=== PATIENT | male | born 1945 | race African-American/Black ===

== ENCOUNTER → 2019-12-24 11:59 | Outpatient (CLI) | payer MEDICARE, SELFPAY ==
--- NOTE | ~2019-12-24 | XR_ITS ---
EXAMINATION: XR shoulder RT min 2V DATE: 12/24/2019 12:24 INDICATION: Right shoulder pain TECHNIQUE: AP internally and externally rotated, AP oblique externally rotated and axillary views of the right shoulder were obtained. COMPARISON: None FINDINGS: Normal alignment. No fracture. Glenohumeral joint is normal. Acromioclavicular joint is normal. Soft tissues are unremarkable. Visualized portions of the right lung are clear. IMPRESSION: Negative right shoulder radiographs. Reviewed, dictated and finalized at location A. SPERSON
--- NOTE | ~2019-12-24 | XR_ITS ---
EXAMINATION: XR hip BI wo pelvis INDICATION: Bilateral hip pain TECHNIQUE: Two views of each hip are obtained. COMPARISON: 11/01/2015 FINDINGS: There is mild bilateral hip osteoarthritis. Bone alignment is normal. There is no fracture. Moderate to severe lumbar spondylosis is noted. There is calcified atherosclerosis. IMPRESSION: 1. Mild hip osteoarthritis without acute findings. Reviewed, dictated and finalized at location A. AL ARCHITECT
== END ==
PROVIDERS: PCP Family Medicine; Visit Provider Family Medicine
DX: M16.0 Bilateral primary osteoarthritis of hip (principal); M25.511 Pain in right shoulder
CPT/HCPCS: 73030; 73521

== ENCOUNTER 2020-08-10 21:56 | Observation (INO) | payer MEDICARE, SELFPAY ==
--- NOTE | ~2020-08-10 | NM_ITS ---
EXAMINATION: NM lucina stress w perfusion DATE: 08/11/2020 15:00 INDICATION: Chest pain TECHNIQUE: Rest images were obtained following intravenous administration of 9.3 mCi Tc99m tetrofosmi n (Myoview). The patient was infused intravenously with Lexiscan (Regadenoson). Then, 30 mCi Tc99m te trofosmin (Myoview) was administered intravenously, and stress images were obtained in supine positio n. Additional prone post stress images were obtained. Data was reconstructed into short axis and hori zontal and vertical long axis SPECT images. Gated SPECT images were also obtained. COMPARISON: None. FINDINGS: There is essentially decreased activity along the inferior wall of the heart on the supine imaging which is more prominent on the rest than the stress images and which normalizes on prone imag ing consistent with likely diaphragmatic attenuation artifact. There is no definite reversible or fix ed perfusion abnormality to suggest ischemia or infarction. There is normal left ventricular chamber size, wall motion and ejection fraction. Left ventricular ejection fraction measures 61%. IMPRESSION: 1. Normal myocardial perfusion at rest and during stress. 2. Left ventricular ejection fraction measuring 61%. Reviewed, dictated and finalized at location A.
--- NOTE | ~2020-08-10 | XR_ITS ---
EXAMINATION: XR chest 1V portable EXAM DATE: 08/10/2020 23:00 INDICATION: Left-sided chest pain. History hypertension. TECHNIQUE: Portable AP frontal chest x-ray was obtained. Comparison is made to prior examination from 11/16/2018. FINDINGS: Subsegmental left basilar opacity probably atelectasis, clinical correlation. The lungs are otherwise clear. There are no pleural effusions. The cardiomediastinal silhouette is within normal limits. There is no pneumothorax suspected. The bones and soft tissues are unremarkable. IMPRESSION: Small amount of left basilar opacity probably atelectasis but please clinically correlate . Reviewed, dictated and finalized at location A. IMPRESSION: Small amount of left basilar opacity probably atelectasis but pleas e clinically correlate.
[2020-08-10 22:06] VITALS: BP 161/90; PULSE 76; RESP 20; TEMP 37.3; O2SAT 98
--- NOTE | 2020-08-10 22:14 | ECG_ITS ---
Measurements Intervals [place] Rate: 75 P: 60 AR: 277 QRS: -8 QRSD: 97 T: 55 QT: 356 QTc: 398 Interpretive Statements SINUS RHYTHM WITH FIRST DEGREE AV BLOCK BASELINE ARTIFACT- I, III, AVL ABNORMAL ECG Electronically Signed On 08-11-2020 6:42:11 CDT by Emmett Alcantar D.O.
[2020-08-10 22:32] LABS: Basophils Percent Auto 0.7 % (0.2-1.2); Eosinophils Absolute Auto 0.1 K/mm3 (0-0.3); Eosinophils Percent Auto 1.7 % (0-4.4); Hematocrit 39.8 % (42.0-52.0); Hemoglobin 13.8 g/dL (14.0-18.0); Immature Granulocyte Absolute 0.01 K/mm3 (0.00-0.031); Immature Granulocyte Percent A 0.2 % (0-0.5); Lymphocytes Absolute Auto 0.69 K/mm3 (0.9-3.2); Lymphocytes Percent Auto 17.1 % (18.3-44.2); Mean Corpuscular HGB Conc 34.7 g/dl (32-36); Mean Corpuscular Hemoglobin 32.5 pg (26-34); Mean Corpuscular Volume 93.9 fl (80-100); Mean Platelet Volume 8.8 fl (7.4-10.4); Monocytes Absolute Auto 0.4 K/mm3 (0.1-0.6); Monocytes Percent Auto 10.6 % (2.6-8.5); Neutrophils Absolute Auto 2.8 K/mm3 (1.3-6.7); Neutrophils Percent Auto 69.7 % (45.5-73.1); Platelet Count Result 163 k/mm3 (150-375); Red Blood Count 4.24 M/mm3 (4.6-6.20); Red Cell Distribution Width 13.1 % (11.5-14.5)
[2020-08-10 22:42] LABS: Partial Thromboplastin Time 26.3 SECONDS (22.3-36.8)
[2020-08-10 22:44] LABS: Alanine Aminotransferase 24 U/L (4-50); Albumin Level 3.9 g/dL (3.5-5.1); Alkaline Phosphatase 55 U/L (38-126); Anion Gap 7 mmol/L (8-16); Aspartate Amino Transferase 27 U/L (17-59); Bilirubin,Total 0.7 mg/dL (0.2-1.3); Blood Urea Nitrogen 24 mg/dL (9-20); Calcium 9.3 mg/dL (8.4-10.2); Carbon Dioxide 28 mmol/L (22-30); Chloride 106 mmol/L (98-107); Estimated CRCL calculation 42 ml/min; Estimated Glomerular Filt Rate 51; Glucose 130 mg/dL (75-110); Sodium 141 mmol/L (137-145)
[2020-08-10 22:56] LABS: NT Pro B Type Natriuretic Pept 42 PG/ML (5-100); Troponin I < 0.012 ng/mL (0.000-0.034)
--- NOTE | 2020-08-10 23:29 | ED.CHESTPAIN ---
HPI - Chest Pain General Chief Complaint: Chest Pain Stated Complaint: chest pain Time Seen by Provider: 08/10/20 22:13 Source: family Mode of arrival: ambulatory Limitations: no limitations History of Present Illness HPI narrative: 75-year-old with a history of hypertension, status post prostate CA here with complaints of left-sided chest pain for last 4 hours. Patient states that pain is mostly in the left precordial area. Nonradiating. He denies any shortness of breath, nausea or diaphoresis. Patient states that he was sitting on the couch watching TV . No history of fever or chills. No COVID exposure. Patient states that he had stress test done several years ago. complaint: chest pain Onset (ago): hour(s) (2) Timing of current episode: constant Onset: during rest Pain location: left chest Pain radiation: none Quality: heaviness Relieving factors: nothing Exacerbating factors: nothing Risk Factors Coronary artery disease risk factors: hyperlipidemia and hypertension Thoracic aortic dissection risk factors: none Related Data Home Medications Medication Instructions Recorded Confirmed cholecalciferol (vitamin D3) 125 5,000 unit PO DAILY 12/24/19 mcg (5,000 unit) capsule simvastatin 20 mg tablet 20 mg PO DAILY 12/24/19 Allergies Allergy/AdvReac Type Severity Reaction Status Date / Time atorvastatin Allergy Unknown Unknown Verified 08/06/20 11:21 Sulfa (Sulfonamide Allergy Unknown Rash Verified 08/06/20 11:21 Antibiotics) sulfanilamide Allergy Unknown Rash Verified 08/06/20 11:21 Review of Systems Review of Systems: All systems reviewed & are unremarkable except as noted in HPI and below Constitutional: Constitutional: Reports no additional constitutional complaints Eyes: Eyes: Reports no additional eye complaints ENT: Reports system reviewed and no additional complaints, except as documented Cardiovascular: Cardiovascular: Reports as per HPI and Reports no additional cardiovascular complaints Respiratory: Respiratory: Reports as per HPI Gastrointestinal: Gastrointestinal: Reports no additional gastrointestinal complaints Musculoskeletal: Musculoskeletal: Reports no additional musculoskeletal complaints [facility] Family History Family History Father Hypertension Family history of diabetes mellitus in first degree relative Sibling Patient's sister is in good health Social History Social History Smoking packs per day: 3 Smoking cigarettes per day: 60.0 Years smoked: 21 Smoking pack-years: 63.00 Smoking status: Former smoker Tobacco type: cigarettes Second hand tobacco smoke exposure: No Smoking end date: 11/14/84 Alcohol intake: never Substance use: never Substance use type: does not use Gender identity (if verbalized by the patient): Male Exam Narrative: Exam Narrative: GENERAL: Well-appearing, well-nourished, and in no acute distress. HEAD: Normocephalic, atraumatic. EYES: PERRLA and EOMI. ENT: Nares clear, . Mucous membranes moist. NECK: Supple. CHEST: Clear to auscultation. No respiratory distress. HEART: Regular rate and rhythm. No murmur heard. Normal peripheral pulses. ABDOMEN: Soft, nontender, nondistended, normal active bowel sounds. EXTREMITIES: Normal range of motion. No edema. SKIN: Warm, dry, no rash. NEURO: No focal deficits. Alert and oriented x3. PSYCH: Normal mood and affect. Course Course Emergency Course: With a given history of hypertension, hyperlipidemia will do cardiac work-up. His EKG at this time is unremarkable except for first-degree AV block. Also give him nitro and aspirin as he stated his pain is 4 out of 10. Vital Signs Vital signs: Vital Signs Temperature 37.3 C 08/10/20 22:06 Pulse Rate 76 08/10/20 22:06 Respiratory Rate 08/10/20 22:06 Blood Pressure 161/90 H 08/10/20 22:06 Pulse Oximetry 98
[2020-08-10 23:30] VITALS: BP 141/78; PULSE 77; RESP 21; O2SAT 95
[2020-08-10] MEDS: NITROGLYCERIN SL 0.4 MG TABLET SUBLINGUAL (23:32)
[2020-08-10] MEDS: ASPIRIN 325 MG TABLET PO (23:35)
[2020-08-11] VITALS (16 sets, daily range): BP systolic 112–140; BP diastolic 67–91; PULSE 53–77; RESP 12–23; TEMP 35.9–36.4; O2SAT 94–100; BMI 26.9
--- NOTE | 2020-08-11 00:41 | PC.NURSE ---
2ND 0.4 MG SL NTG TAB ADMINISTERED FOR 01/21 CP, 131/77 B/P TREVOR, 74 HR.
[2020-08-11 01:41] LABS: Troponin I < 0.012 ng/mL (0.000-0.034)
[2020-08-11] MEDS: NITROGLYCERIN OINTMENT 1 INCH DOSE TRANSDERM ×2 (02:01→06:03)
--- NOTE | 2020-08-11 02:11 | ADMGEN ---
This patient, Sudarshan Rice, was admitted to IMU Room 210-01. Patient/family oriented to hospital policies and general routines including ID bracelet, bed and alarms, visiting hours, pain management, procedures, bathroom and other care routines, personal items, smoking policy, room service/diet, and visiting hours. Valuables list has been completed. Information on how to activate the Rapid Response Team has been discussed. Patient/Family are encouraged to report perceived risks to care and to ask questions if they do not understand what they are told or what they should do.
[2020-08-11] MEDS: SODIUM CHLORIDE 0.9% IV 1,000 ML 100 ML IV CONT (06:08)
[2020-08-11 06:12] LABS: Basophils Percent Auto 0.5 % (0.2-1.2); Eosinophils Absolute Auto 0.1 K/mm3 (0-0.3); Eosinophils Percent Auto 2.9 % (0-4.4); Hematocrit 38.9 % (42.0-52.0); Hemoglobin 13.4 g/dL (14.0-18.0); Lymphocytes Absolute Auto 0.75 K/mm3 (0.9-3.2); Lymphocytes Percent Auto 19.8 % (18.3-44.2); Mean Corpuscular HGB Conc 34.4 g/dl (32-36); Mean Corpuscular Hemoglobin 32.2 pg (26-34); Mean Corpuscular Volume 93.5 fl (80-100); Mean Platelet Volume 8.5 fl (7.4-10.4); Monocytes Absolute Auto 0.4 K/mm3 (0.1-0.6); Monocytes Percent Auto 11.3 % (2.6-8.5); Neutrophils Absolute Auto 2.5 K/mm3 (1.3-6.7); Neutrophils Percent Auto 65.5 % (45.5-73.1); Platelet Count Result 162 k/mm3 (150-375); Red Blood Count 4.16 M/mm3 (4.6-6.20); Red Cell Distribution Width 12.9 % (11.5-14.5); White Blood Count 3.8 K/mm3 (4.5-10.0)
[2020-08-11 06:31] LABS: Anion Gap 5 mmol/L (8-16); Blood Urea Nitrogen 21 mg/dL (9-20); Calcium 9.3 mg/dL (8.4-10.2); Carbon Dioxide 29 mmol/L (22-30); Chloride 106 mmol/L (98-107); Estimated CRCL calculation 42 ml/min; Estimated Glomerular Filt Rate 51; Glucose 115 mg/dL (75-110); Potassium 4.4 mmol/L (3.4-5.0); Sodium 140 mmol/L (137-145)
[2020-08-11 06:37] LABS: Troponin I < 0.012 ng/mL (0.000-0.034)
[2020-08-11] MEDS: FAMOTIDINE 20 MG/2 ML VIAL IV PUSH (08:29)
[2020-08-11] MEDS: ASPIRIN 81 MG CHEWABLE TABLET PO (08:29)
--- NOTE | 2020-08-11 08:35 | EST_ITS ---
Patient Info Name: Sudarshan Rice Age: 75 years : 1945 Gender: Male Ht: 74 in Wt: 216 lbs BSA: 2.28 m2 HR: 78 bpm BP: 141 / 80 mmHg Heart Rhythm: Sinus Rhythm Technical Quality: Good Exam Date: 08/11/2020 1:26 PM Exam Location: [facility] Stress Patient Status: Inpatient Admit Date: 08/10/2020 Staff Ordering Physician: Shalom Cotter MD Attending Provider: Alexandr Almaguer MD Exercise Technologist: Bart Bess RDCS, RT Exam Type: CA stress lucina w NM Study Info Indications R07.9 - Chest pain, unspecified A nuclear stress test was performed. History/Risk Factors Chest pain. Summary 1. Sinus bradycardia. 2. First degree A-V Block. 3. No abnormal ST/T wave changes with exercise. 4. Clinically and electrocardiographically unremarkable Lexiscan stress test. 5. Myocardial perfusion imaging study to be reported by Radiology. Protocol: Lexiscan Stress ECG Details Stage: REST Duration (min): 1 min : 48 sec HR (bpm): 57 SBP (mmHg): 127 DBP (mmHg): 77 Stage: REST Duration (min): 4 min : 28 sec HR (bpm): 59 SBP (mmHg): 127 DBP (mmHg): 77 Stage: STAGE 1 Duration (min): 1 min : 0 sec HR (bpm): 62 SBP (mmHg): 141 DBP (mmHg): 80 Stage: RECOVERY Duration (min): 1 min : 0 sec HR (bpm): 75 SBP (mmHg): 141 DBP (mmHg): 80 Stage: RECOVERY Duration (min): 2 min : 0 sec HR (bpm): 74 SBP (mmHg): 141 DBP (mmHg): 80 Stage: RECOVERY Duration (min): 3 min : 0 sec HR (bpm): 73 SBP (mmHg): 132 DBP (mmHg): 79 Stage: RECOVERY Duration (min): 3 min : 40 sec HR (bpm): 72 SBP (mmHg): 132 DBP (mmHg): 79 Rest HR: 59 bpm Peak HR: 78 bpm Rest Sys BP: 127 mmHg Peak Sys BP: 141 mmHg Max Pred HR: 144 bpm % Max Pred HR: 54 % Target HR: 122 bpm Max RPP: 10,998 bpm*mmHg Total Time: 1 min : 0 sec Rest Haines BP: 77 mmHg Peak Haines BP: 80 mmHg Total Dose: 0.4 mg Resting ECG Sinus bradycardia. First degree A-V Block. Stress ECG No abnormal ST/T wave changes with exercise. Arrhythmias None. Report Signatures
--- NOTE | 2020-08-11 08:45 | PM.IMHP ---
H&P: HPI History of Present Illness Date/Time: 08/11/20 08:45 Chief complaint: unstable angina Narrative: date of visit 08/11 815. Sudarshan Rice is a 75 year old male with hyperlipidemia and hypertension status post radical prostatectomy prostate CA and stage III chronic renal failure who presented to the emergency room with complaints of left-sided dull pressure chest pain. He states the pain occurred while sitting watching TV sometime after eating. The pain is been fairly constant with no associated shortness breath nausea or diaphoresis. No recent changes in activity and no recent similar pain. The distant past, several years ago had a stress test for chest discomfort which was negative. No known family history and had not smoked since 1974 . treated for hypertension and hyperlipidemia. no significant GI symptoms of reflux or such on regular basis Review of Systems Review of Systems: Narrative: constitutional weight stable appetite good Eye no double vision scotoma mouth no pharyngitis laryngitis CV no palpitation GI no melena hematochezia diarrhea post surgery and radiation has had frequency and occasional mild incontinence integument no skin breakdown rashes muscle skeletal no particular joint discomfort neuropsych no seizures no syncope PMFSH Past Medical History Medical History (Updated 08/11/20 @ 08:58 by Shalom Cotter MD) Chronic renal failure, stage 3 (moderate) Hyperlipidemia Hypertension Prostate cancer Surgical History Surgical History (Updated 08/11/20 @ 08:58 by Shalom Cotter MD) H/O radical prostatectomy Family History Family History Father Hypertension Family history of diabetes mellitus in first degree relative Sibling Patient's sister is in good health Social History Social History (Updated 08/11/20 @ 08:59 by Shalom Cotter MD) Social History: retired [employer], no occupational exposure Smoking packs per day: 3 Smoking cigarettes per day: 60.0 Years smoked: 21 Smoking pack-years: 63.00 Smoking status: Former smoker Tobacco type: cigarettes Second hand tobacco smoke exposure: No Smoking end date: 11/14/84 Alcohol intake: former Substance use: never Substance use type: does not use Gender identity (if verbalized by the patient): Male Spiritual care concerns: No Meds Home Medications and Allergies Home Medications Medication Instructions Recorded Confirmed Type cholecalciferol (vitamin D3) 125 5,000 unit PO DAILY 12/24/19 08/11/20 History mcg (5,000 unit) capsule simvastatin 20 mg tablet 20 mg PO DAILY 12/24/19 08/11/20 History lisinopril 10 mg tablet 10 mg PO DAILY #90 tablet 01/01/20 08/11/20 Rx cnhitvrgpvor-iualvirn-mcvojd 1 tablet PO DAILY 08/10/20 08/11/20 History [Multivitamin 50 Plus] Allergies Allergy/AdvReac Type Severity Reaction Status Date / Time atorvastatin Allergy Unknown Unknown Verified 08/10/20 23:41 Sulfa (Sulfonamide Allergy Unknown Rash Verified 08/10/20 23:41 Antibiotics) sulfanilamide Allergy Unknown Rash Verified 08/10/20 23:41 Vital Signs Vital Signs - 24 hr 08/10/20 22:06 08/10/20 23:30 08/11/20 00:15 Temperature 37.3 C Pulse Rate 76 77 72 Respiratory Rate 20 21 H 21 H Blood Pressure 161/90 H 141/78 H 140/84 Pulse Oximetry 98 95 97 08/11/20 00:38 08/11/20 00:45 08/11/20 01:00 Temperature 36.4 C Pulse Rate 68 77 74 Respiratory Rate 17 23 H 18 Blood Pressure 131/77 129/73 129/71 Pulse Oximetry 94 99 98 08/11/20 02:00 08/11/20 02:20 08/11/20 04:00 Temperature 36.1 C L Pulse Rate 76 69 69 Respiratory Rate 18 Blood Pressure 112/69 Pulse Oximetry 100 08/11/20 04:23 08/11/20 06:00 08/11/20 08:00 Temperature 36.0 C L Pulse Rate 68 62 58 L Respiratory Rate 12 Blood Pressure 120/67 Pulse Oximetry 99 Exam Narrative: Exam Narrative: blood pressure 1
--- NOTE | 2020-08-11 10:39 | PM.CNCAR ---
Assessment and Plan Assessment and plan (1) Chest pain: Code(s): R07.9 - Chest pain, unspecified Status: Acute Assessment and Plan: Atypical, constant ruled out for myocardial infarction most likely musculoskeletal and/or GI related. However, given patient's multiple risk factors including age, HTN, dyslipidemia, remote tobacco use), underlying CAD cannot be excluded. PT agreeable to proceed with Lexiscan nuclear stress test to assess for myocardial ischemia. He states he is unable to exercise due to sciatica/back pain. If no significant reversible ischemia with preserved LV systolic function identified patient may be discharged home to follow with PCP. Further recommendations to follow. Discussed invasive versus noninvasive evaluation. All questions answered to the patient's satisfaction. Patient wishes to avoid invasive procedures if at all possible. he wishes to proceed with stress test. I explained his recommendation for coronary angiography if significant and/or high risk reversible ischemia identified but any decision in this regard must be made in context with his other medical conditions balancing risk versus benefit. further recommendations to follow after review ischemic evaluation. (2) Hypertension: Code(s): I10 - Essential (primary) hypertension Status: Acute Assessment and Plan: Controlled presently, but elevated initially. Continue current antihypertensive regimen. Lisinopril 10 mg daily. (3) CKD (chronic kidney disease), stage III: Code(s): N18.3 - Chronic kidney disease, stage 3 (moderate) Status: Acute Assessment and Plan: Stable, at baseline. (4) Dyslipidemia: Code(s): E78.5 - Hyperlipidemia, unspecified Status: Acute Assessment and Plan: Continue simvastatin 20 mg daily. History of Present Illness History of Present Illness Consult date/time: Date of service:08/11/20 10:39 Cardiology consultation at the request of Dr. Cotter of [facility] for our opinion regarding chest pain. Requesting physician: Shalom Cotter MD Consult reason: chest pain Reason For Visit: unstable angina Narrative: Patient is a very pleasant 75-year-old male with history of hypertension, dyslipidemia, history of radical prostatectomy secondary to prostate cancer, chronic kidney disease stage 3 who presented emergency prior with complaints of pressure-like chest pain in the left upper chest. Patient states this occurred at rest yesterday around 5:00 p.m. after eating while watching television. Patient denies radiation or associated shortness of breath and nausea. Symptoms have been constant although lessened in intensity since that time. He notes sitting up seems to make the pain a bit worse. He has never experienced symptoms similar to this he states. He has been having more issues with GERD but states this is different. He has ruled out for myocardial infarct with negative serial cardiac enzymes and no acute ischemic changes on EKG. He states he had a stress test several years ago which was unremarkable. He denies recent trauma, illnesses, fevers, chills or cough. He feels well otherwise and reiterated on a couple of occasions his symptoms feel like a muscle spasm in his chest wall. He has no other complaints at this time. Review of Systems Review of Systems: All systems reviewed & are unremarkable except as noted in HPI and below Constitutional: Constitutional: Reports as per HPI and Reports no additional constitutional complaints Eyes: Eyes: Reports as per HPI and Reports no additional eye complaints ENT: Reports system reviewed and no additional complaints, except as documented, Reports as per HPI and Denies dysphagia Cardiovascular: Cardiovascular: Reports as per HPI, Reports no additional cardiovascular complaints, Reports chest pain, Denies diaphoresis, Denies leg edema and Denies palpitations Respiratory: Respirator
--- NOTE | 2020-08-15 13:49 | PM.DS ---
DS: Admitting Diagnosis Admitting Diagnosis Admitting Diagnosis: unstable angina DS: Discharge Diagnosis Discharge Diagnosis (1) Angina pectoris, unstable: Code(s): I20.0 - Unstable angina Status: Acute Assessment and Plan: chest pain was longer in duration and would expect with ischemic event although did have risk factors so nuclear stress test was performed after seen by Cardiology which revealed normal ejection fraction is 61% and no reversible ischemia. Causes of pain not known but possible muscle skeletal or GI and will follow-up with primary care (2) Hypertension: Code(s): I10 - Essential (primary) hypertension Status: Acute Assessment and Plan: blood pressure well controlled on low-dose Reji continue the same (3) Pure hypercholesterolemia: Code(s): E78.00 - Pure hypercholesterolemia, unspecified Status: Acute Assessment and Plan: continue statin (4) CKD (chronic kidney disease), stage III: Code(s): N18.3 - Chronic kidney disease, stage 3 (moderate) Status: Acute Assessment and Plan: creatinine fairly stable was 1.4 in 2019 and now the creatinine was 1.6 any will continue to follow-up with nephrology as as his urologist DS: Summary Hospital Course Hospital Course: hypertensive male chronic renal failure stage 3 and hyperlipidemia admitted with substernal chest pain occurred while sitting with no appreciable associated symptoms. Troponins were negative but with risk factors nuclear stress test was performed which revealed ejection fraction is 61% and no reversible ischemia seen. It was felt the pain was probably noncardiac and patient will follow-up with his primary care if further symptoms possible GI evaluation. Although the patient is had no significant reflux or GI symptoms. Time Spent with Patient Time attestation: Total time spent providing and/or coordinating discharge services:35 minutes Exam Narrative: Exam Narrative: condition on discharge blood pressure 132/90 pulse 56 saturating 98% on room air afebrile lungs clear CV regular rate rhythm abdomen is soft nontender no masses extremities without edema distal pulses are 2+ he was up and about with no further chest discomfort stable and ready for discharge Discharge Plan Discharge Attending physician on discharge: Shalom Cotter Consulting providers: Janak Gautam ; Papi Reece ; Teddy Martin ; Pablo Arroyo ; Emmett Alcantar Discharging Clinician: Shalom Cotter Patient Disposition: Home, Self-Care Activity: as tolerated Diet: low sodium and low cholesterol Discharge Instructions: CARDIOLOGY DISCHARGE INSTRUCTIONS: Your stress test was negative. Follow-up with PCP Primary Care Provider 1-2 weeks. You do not need to follow up with Cardiology at this time. Patient Instructions: Antibiotic Form, Chest Pain (DC), Chronic Hypertension (DC) Stand Alone Forms: General Discharge Information Follow-up/Referrals: Toy Bedolla MD [Primary Care Provider] - 2 Weeks Discharge Medications: Continued simvastatin 20 mg tablet 20 mg PO DAILY RF: 0 cholecalciferol (vitamin D3) 125 mcg (5,000 unit) capsule 5,000 unit PO DAILY RF: 0 Multivitamin 50 Plus Tablet 1 tablet PO DAILY RF: 0 lisinopril 10 mg tablet 10 mg PO DAILY Qty: 90 RF: 2 Date of admission: 08/10/20 23:39 Primary Care Provider: Toy Bedolla Admitting Provider: Alexandr Almaguer Discharge Date/Time: 08/11/20 18:10 Attending physician on admission: Shalom Cotter Condition: Stable
== END 2020-08-11 18:10 | disposition home or self-care (01) ==
LOC: ANHED 23:39 → ANHIMU 08-11 02:27
PROVIDERS: Admitting Provider Family Medicine; Emergency Provider Family Medicine; PCP Family Medicine; Visit Provider Internal Medicine
DX: I20.0 Unstable angina (principal); E78.00 Pure hypercholesterolemia, unspecified; E78.5 Hyperlipidemia, unspecified; I12.9 Hypertensive chronic kidney disease with stage 1 through stage 4 chronic kidney disease, or unspecified chronic kidney disease; N18.3 Chronic kidney disease, stage 3 (moderate); Z85.46 Personal history of malignant neoplasm of prostate; Z87.891 Personal history of nicotine dependence; Z90.79 Acquired absence of other genital organ(s); R07.89 Other chest pain; I44.0 Atrioventricular block, first degree
CPT/HCPCS: 36415; 71045; 78452; 80048; 80053; 83880; 84484; 85025; 85730; 93005; 93017; 96361; 96374; 99285; A9270; A9502; G0378; J2785; J7030

== ENCOUNTER 2020-08-31 00:38 | Observation (INO) | payer MEDICARE, SELFPAY ==
[2020-08-31] VITALS (18 sets, daily range): BP systolic 118–162; BP diastolic 68–82; PULSE 60–95; RESP 12–20; TEMP 35.7–37; O2SAT 91–100; BMI 27.2
--- NOTE | ~2020-08-31 | US_ITS ---
EXAMINATION: US venous doppler [facility] DATE: 09/01/2020 11:23 INDICATION: Acute pulmonary emboli. TECHNIQUE: Grayscale ultrasound images without and with compression and Doppler ultrasound images of the bilateral lower extremity veins were obtained. COMPARISON: None. FINDINGS: The visualized portions of right common femoral vein, profunda (deep) femoral vein, femoral vein, pop liteal vein, peroneal veins, posterior tibial veins, and greater saphenous vein outflow are patent. T here is thrombus in a right gastrocnemius vein. The visualized portions of left common femoral vein, profunda femoral vein, femoral vein, popliteal v ein, peroneal veins, posterior tibial veins, and greater saphenous vein outflow are patent. IMPRESSION: 1. Acute deep vein thrombosis involving a right calf gastrocnemius vein. Reviewed, dictated and finalized at location A.
--- NOTE | ~2020-08-31 | CT_ITS ---
EXAMINATION: CTA chest PE protocol DATE: 08/31/2020 02:11 INDICATION: Right-sided chest pain. Shortness of breath. TECHNIQUE: Computed tomography angiography (CTA) of the chest was performed with 100 mL Omnipaque-350 intravenous contrast timed to evaluate the pulmonary arteries. Coronal maximum intensity projection 3D-reconstructions were created by the technologist. Automated exposure control and iterative reconst ruction technique were employed. The dose-length product was 666.46 mGy-cm. COMPARISON: Chest CT 05/23/2007, CT abdomen and pelvis 11/16/2018 FINDINGS: There is moderate emphysema. There is mild dependent atelectasis bilaterally. There are air space opacities in right middle lobe. There are chronic 5 mm and 4 mm nodules in left lower lobe, lik patrick benign. There is a trace right pleural effusion. The heart size is normal. There are coronary art ron calcifications. No pericardial effusion. There are acute pulmonary emboli in right upper lobe, ri ght middle lobe, and the lower lobes. Partially visualized are cysts in right kidney measuring up to 4.5 cm. There is moderate thoracic spondylosis. IMPRESSION: 1. Bilateral acute pulmonary emboli. 2. Airspace opacities in right middle lobe, consistent with infarct. 3. Moderate emphysema. Reviewed, dictated and finalized at location A.
--- NOTE | 2020-08-31 00:29 | ED.CHESTPAIN ---
HPI - Chest Pain General Chief Complaint: Chest Pain Stated Complaint: R CP Source: patient, family and EMS Mode of arrival: EMS Limitations: no limitations History of Present Illness HPI narrative: Patient is a 75-year-old male with a history of hypertension, prostate cancer who presents for evaluation of right-sided chest pain. Patient with right-sided chest pain over the past 24 hours. It has been constant in nature. It occurred while the patient was watching television yesterday, he denies any strenuous activity or chest wall trauma. Patient reports pain with movement, and associated shortness of breath. Patient denies fever or cough. He reports right-sided leg cramping and was current concerned he may have a blood clot, thus as the pain was not improving this evening his family called EMS to bring him to the hospital. Patient with recent admission at the end of July for left-sided chest pain, ischemic chest pain was ruled out with negative nuclear stress test, negative troponin. Patient denies associated nausea or diaphoresis. Related Data Home Medications Medication Instructions Recorded Confirmed cholecalciferol (vitamin D3) 125 5,000 unit PO DAILY 12/24/19 08/11/20 mcg (5,000 unit) capsule simvastatin 20 mg tablet 20 mg PO DAILY 12/24/19 08/11/20 Multivitamin 50 Plus 1 tablet PO DAILY 08/10/20 08/11/20 Allergies Allergy/AdvReac Type Severity Reaction Status Date / Time atorvastatin Allergy Unknown Unknown Verified 08/31/20 00:43 Sulfa (Sulfonamide Allergy Unknown Rash Verified 08/31/20 00:43 Antibiotics) sulfanilamide Allergy Unknown Rash Verified 08/31/20 00:43 Review of Systems Review of Systems: Narrative: CONSTITUTIONAL: Denies fever, chills, or sweats. EYES: Denies visual changes, redness, or discharge. ENT: Denies rhinorrhea, congestion, sore throat, or otalgia. CARDIOVASCULAR: Reports chest pain over the right chest, denies palpitations, denies leg edema RESPIRATORY: Denies cough, reports shortness of breath GASTROINTESTINAL: Denies abdominal pain, nausea, vomiting, or diarrhea. GENITOURINARY: Denies dysuria or hematuria. SKIN: Denies rash or itching. MUSCULOSKELETAL: Denies back pain, reports right calf cramping, now resolved NEUROLOGIC: Denies headache, numbness, or weakness. 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 EYES: PERRLA and EOMI. ENT: Nares clear, no rhinorrhea or epistaxis. Mucous membranes moist. NECK: Supple. CHEST: No respiratory distress, breathing even and non labored, chest wall pain is not reproducible on exam HEART: Regular rate, sinus rhythm ABDOMEN:Non distended, non tender EXTREMITIES: Normal range of motion. No edema. No calf tenderness. No erythema or warmth bilaterally. SKIN: Warm, dry, no rash. NEURO:No focal deficits. Alert a
--- NOTE | 2020-08-31 00:57 | ECG_ITS ---
Measurements Intervals [place] Rate: 72 P: 34 OK: 265 QRS: -4 QRSD: 89 T: 41 QT: 344 QTc: 378 Interpretive Statements SINUS RHYTHM WITH FIRST DEGREE AV BLOCK ABNORMAL ECG Electronically Signed On 08-31-2020 8:00:31 CDT by Emmett Alcantar D.O.
[2020-08-31] MEDS: MORPHINE SULFATE (*CRX) 4 MG/ML INJ IV PUSH (01:21)
[2020-08-31] MEDS: ACETAMINOPHEN 500 MG TABLET 1000 MG PO (01:22)
[2020-08-31] MEDS: SODIUM CHLORIDE 0.9% IV 500 ML 999 ML IV CONT (01:22)
[2020-08-31] MEDS: ONDANSETRON INJ 4 MG/2 ML VIAL IV PUSH (01:22)
[2020-08-31 01:34] LABS: Basophils Percent Auto 0.3 % (0.2-1.2); Eosinophils Percent Auto 0.5 % (0-4.4); Hemoglobin 13.2 g/dL (14.0-18.0); Immature Granulocyte Absolute 0.01 K/mm3 (0.00-0.031); Immature Granulocyte Percent A 0.2 % (0-0.5); Lymphocytes Absolute Auto 0.73 K/mm3 (0.9-3.2); Lymphocytes Percent Auto 12.1 % (18.3-44.2); Mean Corpuscular HGB Conc 34.7 g/dl (32-36); Mean Corpuscular Hemoglobin 32.4 pg (26-34); Mean Corpuscular Volume 93.4 fl (80-100); Mean Platelet Volume 8.9 fl (7.4-10.4); Monocytes Absolute Auto 0.6 K/mm3 (0.1-0.6); Monocytes Percent Auto 9.4 % (2.6-8.5); Neutrophils Absolute Auto 4.7 K/mm3 (1.3-6.7); Neutrophils Percent Auto 77.5 % (45.5-73.1); Platelet Count Result 154 k/mm3 (150-375); Red Blood Count 4.07 M/mm3 (4.6-6.20); Red Cell Distribution Width 12.9 % (11.5-14.5); White Blood Count 6.1 K/mm3 (4.5-10.0)
[2020-08-31 01:43] LABS: INR 1.1; Partial Thromboplastin Time 30.4 SECONDS (22.3-36.8); Prothrombin Time 13.7 Seconds (11.1-14.7)
[2020-08-31 01:46] LABS: D Dimer 1.62 ug/mL (<0.48)
[2020-08-31 01:49] LABS: Potassium 3.9 mmol/L (3.4-5.0)
[2020-08-31 01:52] LABS: Anion Gap 6 mmol/L (8-16); Blood Urea Nitrogen 21 mg/dL (9-20); Calcium 9.3 mg/dL (8.4-10.2); Carbon Dioxide 27 mmol/L (22-30); Chloride 106 mmol/L (98-107); Estimated CRCL calculation 45 ml/min; Estimated Glomerular Filt Rate 55; Glucose 119 mg/dL (75-110); Sodium 139 mmol/L (137-145)
[2020-08-31 02:02] LABS: NT Pro B Type Natriuretic Pept 128 PG/ML (5-100); Troponin I < 0.012 ng/mL (0.000-0.034)
[2020-08-31] MEDS: HEPARIN SODIUM 5,000 UNITS/ML VIAL 8000 UNITS IV PUSH (03:18)
[2020-08-31] MEDS: HEPARIN SOD/D5W 100 UNITS/ML 25,000 UNITS/250 ML BAG 15 UNITS IV CONT (03:19)
--- NOTE | 2020-08-31 03:24 | PM.IMHP ---
H&P: HPI History of Present Illness Date/Time: 08/31/20 03:24 Chief complaint: Bilateral PE, right heart strain Narrative: This is a pleasant 75-year-old male with known history of prostate cancer status post robotic prostatectomy as well as hypertension who presented to the hospital with right-sided chest pain. The patient noticed yesterday that he started to have right-sided chest pain as well as right lower extremity calf tightness. Associated symptoms include shortness of breath and a sporadic nonproductive cough. He denies any significant fever or chills. He also denies any headache, wheezing, abdominal pain, nausea, vomiting, dysuria, hematuria, diarrhea, rectal bleeding, or lower extremity swelling. the patient is not known to be on any anticoagulants or aspirin therapy. He has no previous history of blood clots. He denies any recent long distance travel. He also denies any recent surgeries. CTA chest for PE revealed bilateral pulmonary emboli. The patient has not required any supplemental oxygen in the ER tonight. He has been anticoagulated on Heparin IV. We have been asked to admit him to the hospital for further care. He admits that recently he has been very sedentary. He has no other complaints. 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 Smoking packs per day: 3 Smoking cigarettes per day: 60.0 Years smoked: 21 Smoking pack-years: 63.00 Smoking status: Former smoker Tobacco type: cigarettes Second hand tobacco smoke exposure: No Smoking end date: 11/14/84 Alcohol intake: former Substance use: former Substance use type: does not use Gender identity (if verbalized by the patient): Male Meds Home Medications and Allergies Home Medications Medication Instructions Recorded Confirmed Type cholecalciferol (vitamin D3) 125 5,000 unit PO DAILY 12/24/19 08/31/20 History mcg (5,000 unit) capsule simvastatin 20 mg tablet 20 mg PO DAILY 12/24/19 08/31/20 History lisinopril 10 mg tablet 10 mg PO DAILY #90 tablet 01/01/20 08/31/20 Rx Multivitamin 50 Plus 1 tablet PO DAILY 08/10/20 08/31/20 History turmeric 800 mg PO DAILY 08/31/20 08/31/20 History zinc sulfate 220 mg PO DAILY 08/31/20 08/31/20 History apixaban See Rx Instructions .ROUTE 09/01/20 Rx .COMPLEX #74 ea apixaban [Eliquis] 5 mg PO BID #60 tablet 09/01/20 Rx Allergies Allergy/AdvReac Type Severity Reaction Status Date / Time Sulfa (Sulfonamide Allergy Intermediate Rash Verified 09/01/20 14:05 Antibiotics) sulfanilamide Allergy Unknown Rash Verified 09/01/20 14:05 atorvastatin AdvReac Mild Cramping Verified 09/01/20 14:05 of the Muscles Vital Signs Vital Signs - 24 hr 08/31/20 00:36 08/31/20 00:45 08/31/20 01:33 Temperature 36.9 C Pulse Rate 75 75 69 Respiratory Rate 12 14 Blood Pressure 137/74 Pulse Oximetry 94 91 08/31/20 02:25 Temperature Pulse Rate 65 Respiratory Rate 17 Blood Pressure 133/75 Pulse Oximetry 94 Exam Const: General: cooperative, no acute distress, alert and awake Nutritional Appearance: well nourished Orientation/consciousness: patient oriented x3 HENMT: Head: normal to inspection General no
--- NOTE | 2020-08-31 03:35 | PC.NURSE ---
ELLIEAR faxed and tubed to IMU at [phone]. IMU called and notified
--- NOTE | 2020-08-31 05:32 | ADMIMU ---
This patient, Sudarshan Rice, was admitted to IMU status, and placed in IMU Room 205-02 on 08/31/20 at 0420. Patient/family oriented to hospital policies and general routines including ID bracelet, bed and alarms, visiting hours, pain management, procedures, bathroom and other care routines, personal items, smoking policy, room service/diet, and visiting hours. Patient's wallet with debit card and six dollars placed in safe.. Information on how to activate the Rapid Response Team has been discussed. Patient/Family are encouraged to report perceived risks to care and to ask questions if they do not understand what they are told or what they should do.
[2020-08-31 05:56] LABS: Troponin I < 0.012 ng/mL (0.000-0.034)
[2020-08-31 09:28] LABS: Partial Thromboplastin Time 91.8 SECONDS (22.3-36.8)
[2020-08-31] MEDS: HYDROcodone/acetaminophen (*CRX) 7.5-325 MG TABLET 1 TAB PO ×2 (14:35→20:03)
[2020-08-31 15:33] LABS: Partial Thromboplastin Time 60.6 SECONDS (22.3-36.8)
[2020-08-31] MEDS: HEPARIN SODIUM 5,000 UNITS/ML VIAL 3500 UNITS IV PUSH (16:11)
--- NOTE | 2020-08-31 17:17 | PM.IMPN ---
Progress Note: A&P Assessment and Plan (1) Bilateral pulmonary embolism: Code(s): I26.99 - Other pulmonary embolism without acute cor pulmonale Status: Acute Assessment and Plan: May be secondary to being sedentary versus active prostate cancer. Continue anticoagulation and transition to oral anticoagulant. Pain control as needed. Supplemental oxygen as needed. Check lower extremity bilateral duplex ultrasound to rule out DVT. 08/31/20 17:17 patient is 75 year male with history of prostate cancer status post robotic assisted prostatectomy patient presented emergency department with a complaint of left-sided chest and right lower extremity pain, patient also had a complaint shortness of breath to further evaluate patient had a CTA scan of the chest which showed 1. Bilateral acute pulmonary emboli. 2. Airspace opacities in right middle lobe, consistent with infarct. 3. Moderate emphysema. pulmonary emboli most likely secondary to prostate cancer and and patient has not been very active. patient being started heparin will switch him over to oral anticoagulation tomorrow, evaluate will have cardiac echo and venous Doppler (2) Atypical chest pain: Code(s): R07.89 - Other chest pain Status: Acute Assessment and Plan: Likely secondary to bilateral pulmonary embolism. Continue pain control as needed. (3) Hypertension: Qualifiers: Hypertension type: unspecified Qualified Code(s): I10 - Essential (primary) hypertension Code(s): I10 - Essential (primary) hypertension Status: Chronic Assessment and Plan: stable. Continue lisinopril. (4) Prostate cancer: Code(s): C61 - Malignant neoplasm of prostate Status: Chronic (5) Dyslipidemia: Code(s): E78.5 - Hyperlipidemia, unspecified Status: Chronic Assessment and Plan: Continue simvastatin Subjective Date/time seen: 08/31/20 17:17 patient is 75 year male with history of prostate cancer status post robotic assisted prostatectomy patient presented emergency department with a complaint of left-sided chest and right lower extremity pain, patient also had a complaint shortness of breath to further evaluate patient had a CTA scan of the chest which showed 1. Bilateral acute pulmonary emboli. 2. Airspace opacities in right middle lobe, consistent with infarct. 3. Moderate emphysema. pulmonary emboli most likely secondary to prostate cancer and and patient has not been very active. patient being started heparin will switch him over to oral anticoagulation tomorrow, evaluate will have cardiac echo and venous Doppler Review of Systems Review of Systems: All systems reviewed & are unremarkable except as noted in HPI and below Exam Narrative: Exam Narrative: elderly frail Patient is comfortable, NAD HEENT: eyes are clear and none icteric LUNGS:CTA HEART: RR S1S2 ABD: BS+, Soft and nontender Lower extremities: no edema SKIN: nonjaundiced Neuro: grossly intact. Objective Data Vital Signs Vital Signs: Vital Signs - 24 hr 08/31/20 00:36 08/31/20 00:45 08/31/20 01:33 Temperature 98.5 F Pulse Rate 75 75 69 Respiratory Rate 12 14 Blood Pressure 137/74 Pulse Oximetry 94 91 08/31/20 02:25 08/31/20 03:38 08/31/20 04:12 Temperature Pulse Rate 65 60 68 Respiratory Rate 17 15 Blood Pressure 133/75 138/68 Pulse Oximetry 94 95 08/31/20 04:29 08/31/20 06:00 08/31/20 08:00 Temperature 96.9 F L Pulse Rate 95 69 68 Respiratory Rate 18 16 Blood Pressure 118/78 Pulse Oximetry 91 93 08/31/20 08:05 08/31/20 08:31 08/31/20 10:00 Temperature 96.3 F L Pulse Rate 68 75 Respiratory Rate 16 Blood Pressure 128/69 Pulse Oximetry 93 93 08/31/20 11:45 08/31/20 11:54 08/31/20 12:00 Temperature 97.4 F L 97.4 F L Pulse Rate 65 65 Respiratory Rate 20 20 Blood Pressure 139/75 Pulse Oximetry 97 97 08/31/20
--- NOTE | 2020-08-31 18:11 | PC.NURSE ---
Addendum entered by Maria Guadalupe Llanes RN 08/31/20 18:13: Pt transferred at 1537 Original Note: This patient, Sudarshan Rice, was transferred to [[facility] ] on 08/31/20 at 1812. Personal belongings sent with patient. Report given to [Geri ]. Appropriate documentation sent with patient.
--- NOTE | 2020-08-31 18:14 | PC.NURSE ---
This patient, Sudarshan Rice, was received from IMU on 08/31/20 at 1535. Personal belongings list checked and signed. Patient/family oriented to unit policies and routines
[2020-08-31] MEDS: HEPARIN SOD/D5W 100 UNITS/ML 25,000 UNITS/250 ML BAG 17 UNITS IV CONT (20:04)
[2020-08-31 22:30] LABS: Partial Thromboplastin Time 82.9 SECONDS (22.3-36.8)
[2020-09-01] VITALS: BP 158/85; PULSE 68; PULSE 73; RESP 18; TEMP 37.5; O2SAT 93
--- NOTE | 2020-09-01 | ECHO_ITS ---
Patient Info Name: Sudarshan Rice Age: 75 years : 1945 Gender: Male Ht: 75 in Wt: 217 lbs BSA: 2.29 m2 BP: 157 / 69 mmHg Technical Quality: Good Exam Date: 09/01/2020 1:30 PM Exam Location: [facility] Patient Status: Outpatient Admit Date: 08/31/2020 Staff Ordering Physician: Melinda Sevilla MD Senior Energy Market Coordinator: Kamille Chatterjee RDCS Attending Provider: Alexandr Almaguer MD Exam Type: CA echo dop color flow w con Study Info Indications I26.99 - Other pulmonary embolism without acute cor pulmonale Complete two-dimensional, color flow and Doppler transthoracic echocardiogram is performed with contrast to opacify the left ventricle and to improve the deliniation of the left ventricle endocardial borders. Contrast/Agitated Saline Contrast/Ag. Saline: Definity Amount: 1.00 ml Administered By: Colten Lorenzana RN Existing IV Access: Yes IV Access Condition: patent with no signs of infiltration Summary 1. Left ventricular chamber dimension is normal. 2. Definity contrast administered improved wall motion interpretation. 3. Left ventricular systolic function is normal, estimated at 65-70%. 4. There is mildly increased left ventricular wall thickness. 5. The left ventricular diastolic function is grade II diastolic dysfunction. 6. E/e' 10 is mildly elevated. 7. There is trace tricuspid valve regurgitation. 8. Severe pulmonary hypertension, estimated pulmonary arterial systolic pressure is 69 mmHg. Left Ventricle E/e' 10 is mildly elevated. Definity contrast administered improved wall motion interpretation. Left ventricular chamber dimension is normal. Left ventricular systolic function is normal, estimated at 65-70%. There is mildly increased left ventricular wall thickness. The left ventricular diastolic function is grade II diastolic dysfunction. Right Ventricle Right ventricular systolic function is normal with normal TAPSE at 2.5 cm. Right ventricular chamber dimension is normal. Left Atria Left atrial chamber dimension is normal. Right Atria Right atrial chamber dimension is normal. Aortic Valve The aortic valve is trileaflet. There is no aortic valve stenosis. There is no aortic valve regurgitation. Pulmonic Valve There is no pulmonic regurgitation. Mitral Valve There is no mitral valve stenosis. There is no mitral valve regurgitation. Tricuspid Valve There is trace tricuspid valve regurgitation. Severe pulmonary hypertension, estimated pulmonary arterial systolic pressure is 69 mmHg. Pericardium/Pleural There is no pericardial effusion. Aorta The aortic root size at the sinus of Valsalva is normal. Left Ventricular Outflow Tract Name Value Normal LVOT 2D LVOT Diameter 2.02 cm LVOT Doppler LVOT Peak Gradient 5 mmHg LVOT Mean Gradient 3 mmHg LVOT VTI 20.08 cm LVOT VTI/AV VTI Ratio 0.98 LVOT Stroke Volume 64.33 ml LVOT CO 4.69 l/min
[2020-09-01 04:00] VITALS: BP 157/69; PULSE 70; PULSE 72; RESP 20; TEMP 37.1; O2SAT 96
[2020-09-01] MEDS: HYDROcodone/acetaminophen (*CRX) 7.5-325 MG TABLET 1 TAB PO ×2 (04:25→11:58)
[2020-09-01 04:30] LABS: Basophils Percent Auto 0.4 % (0.2-1.2); Eosinophils Absolute Auto 0.1 K/mm3 (0-0.3); Eosinophils Percent Auto 1.3 % (0-4.4); Hematocrit 36.8 % (42.0-52.0); Hemoglobin 12.8 g/dL (14.0-18.0); Immature Granulocyte Absolute 0.01 K/mm3 (0.00-0.031); Immature Granulocyte Percent A 0.2 % (0-0.5); Lymphocytes Absolute Auto 0.61 K/mm3 (0.9-3.2); Lymphocytes Percent Auto 11.3 % (18.3-44.2); Mean Corpuscular HGB Conc 34.8 g/dl (32-36); Mean Corpuscular Hemoglobin 32.5 pg (26-34); Mean Corpuscular Volume 93.4 fl (80-100); Mean Platelet Volume 9.2 fl (7.4-10.4); Monocytes Absolute Auto 0.6 K/mm3 (0.1-0.6); Monocytes Percent Auto 10.9 % (2.6-8.5); Neutrophils Absolute Auto 4.1 K/mm3 (1.3-6.7); Neutrophils Percent Auto 75.9 % (45.5-73.1); Platelet Count Result 167 k/mm3 (150-375); Red Blood Count 3.94 M/mm3 (4.6-6.20); Red Cell Distribution Width 12.6 % (11.5-14.5); White Blood Count 5.4 K/mm3 (4.5-10.0)
[2020-09-01 04:44] LABS: Partial Thromboplastin Time 98.3 SECONDS (22.3-36.8)
[2020-09-01 04:48] LABS: Anion Gap 6 mmol/L (8-16); Blood Urea Nitrogen 17 mg/dL (9-20); Calcium 8.9 mg/dL (8.4-10.2); Carbon Dioxide 28 mmol/L (22-30); Chloride 102 mmol/L (98-107); Estimated CRCL calculation 45 ml/min; Estimated Glomerular Filt Rate 55; Glucose 117 mg/dL (75-110); Potassium 3.9 mmol/L (3.4-5.0); Sodium 136 mmol/L (137-145)
[2020-09-01 08:00] VITALS: PULSE 71
[2020-09-01] MEDS: ZINC SULFATE 220 MG CAPSULE PO (08:25)
[2020-09-01] MEDS: CHOLECALCIFEROL 1,000 UNITS TABLET 5000 UNITS PO (08:26)
[2020-09-01] MEDS: SIMVASTATIN 20 MG TABLET PO (08:26)
[2020-09-01] MEDS: OPTI-GEN TAB 1 TABLET PO (08:26)
[2020-09-01] MEDS: lisinopriL 10 MG TABLET PO (08:26)
[2020-09-01 12:00] VITALS: PULSE 71
[2020-09-01] MEDS: HEPARIN SOD/D5W 100 UNITS/ML 25,000 UNITS/250 ML BAG 17 UNITS IV CONT (12:01)
[2020-09-01 14:00] VITALS: BP 149/66; PULSE 70; RESP 16; TEMP 36.5; O2SAT 96
[2020-09-01] MEDS: PERFLUTREN LIPID MICROSPHERES 1.5 ML VIAL DILUTED TO 10 ML TOTAL VOLUME IV PUSH (14:05)
[2020-09-01 16:00] VITALS: PULSE 71
--- NOTE | 2020-09-01 16:15 | PM.DS ---
DS: Admitting Diagnosis Admitting Diagnosis Admitting Diagnosis: Bilateral PE, right heart strain DS: Discharge Diagnosis Discharge Diagnosis (1) Bilateral pulmonary embolism: Code(s): I26.99 - Other pulmonary embolism without acute cor pulmonale Status: Acute Assessment and Plan: May be secondary to being sedentary versus active prostate cancer. Continue anticoagulation and transition to oral anticoagulant. Pain control as needed. Supplemental oxygen as needed. Check lower extremity bilateral duplex ultrasound to rule out DVT. (2) Atypical chest pain: Code(s): R07.89 - Other chest pain Status: Acute Assessment and Plan: Likely secondary to bilateral pulmonary embolism. Continue pain control as needed. (3) Hypertension: Qualifiers: Hypertension type: unspecified Qualified Code(s): I10 - Essential (primary) hypertension Code(s): I10 - Essential (primary) hypertension Status: Chronic Assessment and Plan: stable. Continue lisinopril. (4) Prostate cancer: Code(s): C61 - Malignant neoplasm of prostate Status: Chronic Assessment and Plan: Continue Oncology recommendations. (5) Dyslipidemia: Code(s): E78.5 - Hyperlipidemia, unspecified Status: Chronic Assessment and Plan: Continue simvastatin DS: Summary Hospital Course Reason for hospitalization: Chief complaint: Bilateral PE, right heart strain Narrative: This is a pleasant 75-year-old male with known history of prostate cancer status post robotic prostatectomy as well as hypertension who presented to the hospital with right-sided chest pain. The patient noticed yesterday that he started to have right-sided chest pain as well as right lower extremity calf tightness. Associated symptoms include shortness of breath and a sporadic nonproductive cough. He denies any significant fever or chills. He also denies any headache, wheezing, abdominal pain, nausea, vomiting, dysuria, hematuria, diarrhea, rectal bleeding, or lower extremity swelling. the patient is not known to be on any anticoagulants or aspirin therapy. He has no previous history of blood clots. He denies any recent long distance travel. He also denies any recent surgeries. CTA chest for PE revealed bilateral pulmonary emboli. The patient has not required any supplemental oxygen in the ER tonight. He has been anticoagulated on Heparin IV. We have been asked to admit him to the hospital for further care. He admits that recently he has been very sedentary. He has no other complaints. Hospital Course: patient is clinically stable had a cardiac echo which showed normal LV systolic function and there was no pulmonary hypertension suggesting right heart strain, patient is switched over to oral anticoagulation with Eliquis, his is present in the room, will discharge the patient home today Status at Discharge Functional status at discharge: independent ambulation Overall status at discharge: patient is back to baseline Time Spent with Patient Time attestation: Total time spent providing and/or coordinating discharge services: Patient was seen and examined at the time of the discharge Condition at discharge is stable Code status: Full code. Time spent preparing discharge summary, discharge medications, discussing discharge planning with child support case officer and patient is 35 minutes. Time spent: Greater than 30 minutes Exam Narrative: Exam Narrative: elderly frail Patient is comfortable, NAD HEENT: eyes are clear and none icteric LUNGS:CTA HEART: RR S1S2 ABD: BS+, Soft and nontender Lower extremities: no edema SKIN: nonjaundiced Neuro: grossly intact. DS: Data Data Completed and Pending Labs on day of discharge: Labs from last 24 hours 09/01/20 09/01/20 09/01/20 03:54 03:54 03:54 WBC 5.4 RBC 3.94 L Hgb 12.8 L Hct 36.8 L MCV 93.4 MCH 32.5
[2020-09-01] MEDS: APIXABAN 5 MG TABLET 10 MG PO (17:10)
== END 2020-09-01 17:55 | disposition home or self-care (01) ==
LOC: ANHED 02:46 → ANHIMU 05:34 → ANH3MEDSUR 09-01 02:06 → ANHIMU 09-02 17:19
PROVIDERS: Admitting Provider Family Medicine; Emergency Provider Emergency Medicine; PCP Family Medicine; Visit Provider Family Medicine
DX: I26.99 Other pulmonary embolism without acute cor pulmonale (principal); I82.461 Acute embolism and thrombosis of right calf muscular vein; I27.20 Pulmonary hypertension, unspecified; R07.89 Other chest pain; C61 Malignant neoplasm of prostate; R06.02 Shortness of breath; I12.9 Hypertensive chronic kidney disease with stage 1 through stage 4 chronic kidney disease, or unspecified chronic kidney disease; N18.30 Chronic kidney disease, stage 3 unspecified; E78.5 Hyperlipidemia, unspecified; Z87.891 Personal history of nicotine dependence; M79.89 Other specified soft tissue disorders; R94.31 Abnormal electrocardiogram [ECG] [EKG]; J43.9 Emphysema, unspecified; R91.8 Other nonspecific abnormal finding of lung field
CPT/HCPCS: 36415; 71275; 80048; 83880; 84484; 85025; 85380; 85610; 85730; 93005; 93970; 96361; 96365; 96375; 99285; A9270; C8929; G0378; J1644; J2270; J2405; J7040; Q9957; Q9967

== ENCOUNTER 2020-11-11 13:29 | Outpatient (CLI) | payer MEDICARE, SELFPAY ==
--- NOTE | ~2020-11-11 | US_ITS ---
EXAMINATION: US renal BI EXAM DATE: 11/11/2020 14:09 INDICATION: Stage III chronic kidney disease. TECHNIQUE: Multiple grayscale and Doppler images of the kidneys were obtained (by a technologist who performed the scan) and subsequently reviewed. Comparison is made to prior examination from 07/26/2017 . FINDINGS: Right kidney: There is normal contour and echogenicity. It measures 11.4 x 5.0 x 4.4 centimeters. Sc attered anechoic regions consistent with cysts measuring up to 4 cm. There is no hydronephrosis. Left kidney: There is normal contour and echogenicity. It measures 11.5 x 5.5 x 4.0 centimeters. Cou ple of anechoic lesions consistent with cysts measuring 1 cm. There is no hydronephrosis. Bladder unremarkable. IMPRESSION: 1. Renal cysts. Reviewed, dictated and finalized at location B. P IMPRESSION: 1. Renal cysts.
== END 2020-11-11 13:30 | disposition home or self-care (01) ==
LOC: ANHIMG 13:30
PROVIDERS: PCP Family Medicine; Visit Provider Internal Medicine Nephrology
DX: N18.31 Chronic kidney disease, stage 3a (principal); N28.1 Cyst of kidney, acquired
CPT/HCPCS: 76775

== ENCOUNTER 2021-01-23 10:45 | Outpatient (CLI) | payer MEDICARE, SELFPAY | END 2021-01-23 10:46 | disposition home or self-care (01) | LOC: ANHCOVIDVC 10:45 | PROVIDERS: PCP Family Medicine | DX: Z23 Encounter for immunization (principal) | CPT/HCPCS: 0001A; 91300 ==

== ENCOUNTER 2021-02-13 10:46 | Outpatient (CLI) | payer MEDICARE, SELFPAY | END 2021-02-13 10:47 | disposition home or self-care (01) | LOC: ANHCOVIDVC 10:47 | PROVIDERS: PCP Family Medicine | DX: Z23 Encounter for immunization (principal) | CPT/HCPCS: 0002A; 91300 ==

== ENCOUNTER → 2021-04-03 08:17 | Outpatient (CLI) | payer MEDICARE, SELFPAY ==
[2021-04-03 19:23] LABS: SARS-CoV-2 RNA PCR Negative
== END ==
PROVIDERS: PCP Family Medicine; Visit Provider Internal Medicine Critical Care Medicine
DX: Z01.812 Encounter for preprocedural laboratory examination (principal); Z20.822 Contact with and (suspected) exposure to COVID-19
CPT/HCPCS: C9803; U0003; U0005

== ENCOUNTER 2021-04-06 09:03 | Outpatient (CLI) | payer MEDICARE, SELFPAY ==
--- NOTE | 2021-04-20 15:31 | WPDSLEEPSTUD ---
Sleep Study Date of Study: 04/06/21 Ordering Provider: Teddy Briceno MD Interpreting Physician: Ntaalie Givens MD Sleep Study Type: Split Polysomnogram Height: 1.91 m Weight: 97.069 kg Body Mass Index: 26.7 Neck Circumference (inches): 16 [place]: 7 Reason for Sleep Study Hypersomnia Sleep History Sudarshan Rice is a 75 year old male with hypersomnia. He is getting insufficient and poor quality sleep which he attributed to prostate cancer, with nocturia 4 times per night. He had prostate cancer surgery and still wakes up 2-3 times at night. He has had sleep deprivation for several years. He has difficulty falling asleep and he wakes up throughout the night. He does not awaken from sleep feeling short of breath. He rarely awakens at night with heartburn, belching or coughing. He occasionally snores. He does not snore loudly enough that others complain. He frequently has trouble sleeping with a cold. He does not wake up gasping for breath at night. He does not have breathing problems at night observed by others. He constantly sweats excessively at night. He does not notice his heart pounding or beating irregularly night. He occasionally falls asleep during the day, occasionally falls asleep involuntarily, never falls asleep while driving. He does not have loss of muscle tone with strong emotion. He does not feel paralyzed on waking or falling asleep. He does not have vivid dreamlike scenes upon awakening or falling asleep. He does not feel afraid to go to sleep. He rarely has nightmares. He rarely remembers his dreams. He does not feel sad, depressed or anxious. He frequently has muscular tension. He does not notice parts of his body jerking. He does not kick at night. He occasionally has crawling and aching feelings in his legs. He occasionally has leg pain at night. He does not have morning jaw pain. He does not grind his teeth during sleep. He constantly is bothered by pain during the day. He is not awakened by pain at night. He frequently wakes up feeling stiff in the morning with sore or achy muscles. He frequently wakes up with pain in the neck and spine. He has fatigue, sexual problems, memory problems and he takes antacids regularly. Normal bedtime is 11:30 p.m. however he may go to bed as late as 3:00 a.m.. It takes him anywhere between 5 and 10 minutes to fall asleep after lights are out. He typically wakes 3 times after initiating sleep. These awakenings are associated with urination. He wakes the morning between 6:00 a.m. and 7:30 a.m.. His weekend schedule is the same. He estimates getting 3-4 hours of sleep nightly. He sometimes takes a nap in the afternoon or evening. A short nap 10 or 15 minutes may be refreshing. He is usually drowsy in the morning for 1 hour or longer. He feels better in the morning after a shower. Habits: History of tobacco 2 packs a day, quit 35 years ago. No caffeine, alcohol or recreational drugs. 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
[2021-04-22 10:35] VITALS: BMI 26.7
== END 2021-04-07 09:19 | disposition home or self-care (01) ==
LOC: ANHCSM 04-07 09:03
PROVIDERS: PCP Family Medicine; Visit Provider Internal Medicine Pulmonary Disease
DX: G47.33 Obstructive sleep apnea (adult) (pediatric) (principal); G47.39 Other sleep apnea; G47.10 Hypersomnia, unspecified; N18.30 Chronic kidney disease, stage 3 unspecified; Z87.891 Personal history of nicotine dependence
CPT/HCPCS: 95811

== ENCOUNTER 2021-04-24 14:33 | Outpatient (CLI) | payer MEDICARE, SELFPAY ==
--- NOTE | ~2021-04-24 | US_ITS ---
EXAMINATION: US renal BI DATE: 04/24/2021 15:16 INDICATION: Chronic kidney disease stage III. Multiple acquired kidney cysts. TECHNIQUE: Multiple ultrasound grayscale images of the kidneys were obtained. COMPARISON: Ultrasound 11/11/2020, CT abdomen and pelvis 11/16/2018 FINDINGS: The right kidney measures 11.2 x 5.2 x 5.3 cm. The left kidney measures 11.0 x 4.5 x 6.2 cm. The kidn eys demonstrate normal parenchymal echogenicity. There are multiple cysts in the kidneys measuring up to 4.1 cm on the right. There is no hydronephrosis. The bladder is not well distended. IMPRESSION: 1. Normal kidney sizes. No hydronephrosis. Reviewed, dictated and finalized at location A.
== END 2021-04-24 14:34 | disposition home or self-care (01) ==
LOC: ANHIMG 14:38
PROVIDERS: PCP Family Medicine; Visit Provider Internal Medicine Nephrology
DX: N18.31 Chronic kidney disease, stage 3a (principal); N28.1 Cyst of kidney, acquired
CPT/HCPCS: 76775

== ENCOUNTER → 2022-01-05 16:34 | Outpatient (CLI) | payer MEDICARE, SELFPAY ==
--- NOTE | ~2022-01-05 | XR_ITS ---
EXAMINATION: XR lumbar spine 2-3V DATE: 01/05/2022 17:16 INDICATION: Low back pain TECHNIQUE: Anteroposterior and lateral views of the lumbar spine, and cone-down lateral view of the l umbosacral junction were obtained. COMPARISON: 04/06/2018 FINDINGS: There is unchanged severe loss of intervertebral disc space height at L3-4, L4-5, and L5-S1 . Moderate loss of vertebral disc space height is present in L2-3. The vertebral body heights are henny ntained. Alignment is normal. There is no fracture. Small degenerative osteophytes project from the a nterior endplates of multiple vertebral bodies. There is calcified atherosclerosis. Moderate facet os teoarthritis is present in the lower lumbar spine. IMPRESSION: 1. Severe lumbar spondylosis without acute findings or significant interval change. Reviewed, dictated and finalized at location A. 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 Severe lumbar spondylosis without acute findings or significant interval ni nge.
== END ==
PROVIDERS: PCP Family Medicine; Visit Provider Family Medicine
DX: M47.896 Other spondylosis, lumbar region (principal)
CPT/HCPCS: 72100

== ENCOUNTER → 2022-03-16 17:05 | Outpatient (CLI) | payer MEDICARE, SELFPAY ==
--- NOTE | ~2022-03-16 | MR_ITS ---
EXAMINATION: MR lumbar spine wo con DATE: 03/16/2022 17:56 INDICATION: Other low back pain. TECHNIQUE: Magnetic resonance imaging (MRI) of the lumbar spine was performed without intravenous con trast. Sequences included sagittal T2-weighted FSE, sagittal T2-weighted FS FSE, sagittal T1-weighted FSE, and axial T2-weighted FSE. COMPARISON: Lumbar spine radiographs 01/05/2022 FINDINGS: There is 7 degrees dextrocurvature of lumbar spine. There is 3 mm anterolisthesis of L3 on L4 and 4 mm retrolisthesis of L5 on S1. Vertebral body heights are normal. There is mildly decreased disc height at L1-L2, moderately decreased disc height at L2-L3, and severely decreased disc height f rom L3-L4 through L5-S1 with endplate remodeling. 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 The distal spinal cor d signal intensity is normal. The conus medullaris is at L1. There are cysts in the kidneys measuring up to at least 4.4 cm on the right. The following disc levels are specifically discussed: L1-L2: The disc is bulging. There is severe right and mild left facet joint osteoarthritis. There is mild bilateral neural foraminal stenosis. There is mild central canal stenosis. L2-L3: The disc is bulging and has an annular fissure. There is mild bilateral facet joint osteoarthr itis. There is mild right and moderate left neural foraminal stenosis. There is mild central canal st enosis. L3-L4: The disc is bulging and has an annular fissure. There is mild right and severe left facet join t osteoarthritis. There is moderate bilateral neural foraminal stenosis. There is mild central canal stenosis. L4-L5: The disc is bulging and has an annular fissure. There is severe right and moderate left facet joint osteoarthritis. There is moderate bilateral neural foraminal stenosis. There is mild central ca nal stenosis. L5-S1: The disc is bulging and has an annular fissure. There is moderate bilateral facet joint osteoa rthritis. There is moderate bilateral neural foraminal stenosis. There is mild central canal stenosis . IMPRESSION: 1. Severe lumbar spondylosis. Reviewed, dictated and finalized at location B.
--- NOTE | ~2022-03-16 | XR_ITS ---
EXAM: XR hip LT min 2V HISTORY: Pain in left hip COMPARISON: 12/24/19 FINDINGS: Normal mineralization. No fracture or dislocation. No lytic or blastic lesion. Mild superi or joint space narrowing and sclerosis in the left hip. No erosion or periosteal change. Vascular terrence cification, otherwise soft tissues within normal limits. Degenerative disc disease in the lower lumba r spine. IMPRESSION: Mild left hip osteoarthritis. Reviewed, dictated and finalized at location K.
== END ==
PROVIDERS: PCP Family Medicine; Visit Provider Nurse Practitioner Family
DX: M54.59 Other low back pain (principal); M47.816 Spondylosis without myelopathy or radiculopathy, lumbar region; M16.12 Unilateral primary osteoarthritis, left hip
CPT/HCPCS: 72148; 73502

== ENCOUNTER 2023-06-20 11:30 | Outpatient (CLI) | payer MEDICARE, SELFPAY ==
--- NOTE | ~2023-06-20 | XR_ITS ---
Right foot Technique: AP, oblique, and lateral views were obtained. Clinical History: Pain Findings: No acute fracture or dislocation is seen. There is advanced degenerative change of the firs t metatarsophalangeal joint. Remaining joint spaces are preserved Soft tissues are unremarkable. 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 Reviewed, dictated and finalized at location . 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
== END 2023-06-20 11:31 | disposition home or self-care (01) ==
PROVIDERS: PCP Family Medicine; Visit Provider Physician Assistant
DX: M19.071 Primary osteoarthritis, right ankle and foot (principal)
CPT/HCPCS: 73630

== ENCOUNTER 2023-10-25 15:13 | Outpatient (CLI) | payer MEDICARE, SELFPAY ==
[2023-10-25 16:01] LABS: Influenza A QL RT-PCR Negative (Negative); Influenza B QL RT-PCR Negative (Negative); RSV RNA, RT-PCR Negative (Negative); SARS-CoV-2 RNA PCR Negative (Negative)
== END 2023-10-25 15:14 | disposition home or self-care (01) ==
PROVIDERS: PCP Family Medicine; Visit Provider Physician Assistant
DX: R05.9 Cough, unspecified (principal); Z20.822 Contact with and (suspected) exposure to COVID-19
CPT/HCPCS: 87637

== ENCOUNTER 2024-02-29 09:06 | Outpatient (CLI) | payer MEDICARE, SELFPAY ==
--- NOTE | ~2024-02-29 | US_ITS ---
US arterial ankle brachial ind INDICATION: Peripheral vascular disease TECHNIQUE: Segmental pressures and plethysmographic and Doppler waveforms of the brachial and lower e xtremity arteries were obtained. COMPARISON: None. FINDINGS: Right and left brachial artery pressures of 134 mm Hg and 143 mm Hg, respectively, are concordant (no rmal difference <= 30 mmHg). The right ankle-brachial index (TRAE) is 1.0 (normal >= 0.9-1.0). The right great toe-brachial index ( TBI) is 0.65 (normal >= 0.60). The left TRAE is 1.09. The left TBI is 0.57. IMPRESSION: 1. Normal bilateral ankle-brachial indices. Mildly decreased left toe brachial index. Reviewed, dictated and finalized at location B.
== END 2024-02-29 09:07 | disposition home or self-care (01) ==
PROVIDERS: PCP Family Medicine; Visit Provider Family Medicine
DX: I73.9 Peripheral vascular disease, unspecified (principal)
CPT/HCPCS: 93922

== ENCOUNTER 2024-06-01 10:41 | Outpatient (CLI) | payer MEDICARE, SELFPAY ==
--- NOTE | ~2024-06-01 | XR_ITS ---
XR hand LT min 3V Ordering provider: Jimmie Tao PA-C History: . M79.642 - Pain in left hand, swelling x tuesday . Comparison: None. FINDINGS: BONES: No acute fracture or dislocation. JOINT SPACES: Osteoarthritic changes in the distal interphalangeal joints. Osteoarthritic changes of the scaphoid and trapezium joint. Osteoarthritic changes of the second metacarpophalangeal joint. SOFT TISSUES: Soft tissue swelling seen in the area of the hand. IMPRESSION: No acute osseous abnormality left hand. Reviewed, dictated and finalized at location A.
--- NOTE | ~2024-06-01 | XR_ITS ---
XR finger 2nd LT min 2V Ordering provider: Jimmie Tao PA-C History: . M79.642 - Pain in left hand, swelling x tuesday . Comparison: None. FINDINGS: BONES: No acute fracture or dislocation. JOINT SPACES: Osteoarthritic changes of the metacarpophalangeal joint and distal interphalangeal join t. SOFT TISSUES: Normal. IMPRESSION: No acute osseous abnormality. Osteoarthritic changes of the second metacarpophalangeal joint and distal interphalangeal joint. Reviewed, dictated and finalized at location A. IMPRESSION: No acute osseous abnormality. Osteoarthritic changes of the second metacarpophalangeal joint and distal inter phalangeal joint.
== END 2024-06-01 10:42 | disposition home or self-care (01) ==
LOC: ANHIMG 10:46
PROVIDERS: PCP Family Medicine; Visit Provider Physician Assistant
DX: M79.642 Pain in left hand (principal); M79.89 Other specified soft tissue disorders; M79.645 Pain in left finger(s); M19.042 Primary osteoarthritis, left hand
CPT/HCPCS: 73130; 73140

== ENCOUNTER 2024-08-20 08:10 | Outpatient (CLI) | payer MEDICARE, SELFPAY ==
--- NOTE | ~2024-08-20 | MR_ITS ---
EXAMINATION: MR brain/brain stem wo/w con DATE: 08/20/2024 09:47 INDICATION: Other amnesia. TECHNIQUE: Magnetic resonance imaging (MRI) of the brain and brainstem was performed without and with 20 mL MultiHance intravenous contrast. COMPARISON: None. FINDINGS: There are scattered areas of nonspecific increased T2-weighted signal intensity in the cere bral white matter and alberto, which is within normal limits for the patient's age. There is no intracra nial hemorrhage, acute infarction, or abnormal intracranial mass lesion. The ventricles are normal in size. There is mild mucosal thickening in the paranasal sinuses. There are likely changes of left oc ular lens replacement surgery. There are changes of left-sided scleral banding procedure. The mastoid air cells are normal. IMPRESSION: 1. Normal aging brain. Reviewed, dictated and finalized at location A. IMPRESSION: 1. Normal aging brain.
== END 2024-08-20 08:11 | disposition home or self-care (01) ==
LOC: ANHIMG 08:13
PROVIDERS: PCP Family Medicine; Visit Provider Physician Assistant
DX: G31.84 Mild cognitive impairment of uncertain or unknown etiology (principal)
CPT/HCPCS: 70553; A9577

== ENCOUNTER 2024-08-27 16:50 | Emergency (ER) | payer MEDICARE, SELFPAY ==
[2024-08-27] VITALS (7 sets, daily range): BP systolic 118–152; BP diastolic 65–76; PULSE 64–84; RESP 15–22; TEMP 36.6–36.8; O2SAT 94–99
--- NOTE | ~2024-08-27 | XR_ITS ---
EXAMINATION: XR chest 2V DATE: 08/27/2024 18:01 INDICATION: Chest pain. TECHNIQUE: Frontal and lateral views of the chest were obtained. COMPARISON: Chest single view 08/10/2020 FINDINGS: There is mild atelectasis at the lung bases. No pleural effusion or pneumothorax. The heart size is normal. IMPRESSION: 1. Mild atelectasis at the lung bases. Reviewed, dictated and finalized at location A.
[2024-08-27] MEDS: MORPHINE SULFATE (*CRX) 2 MG/ML INJ IV PUSH (18:14)
[2024-08-27 18:29] LABS: Basophils Percent Auto 0.3 % (0.2-1.2); Eosinophils Absolute Auto 0.1 K/mm3 (0-0.3); Eosinophils Percent Auto 0.8 % (0-4.4); Hematocrit 37.3 % (42.0-52.0); Immature Granulocyte Absolute 0.01 K/mm3 (0.00-0.031); Immature Granulocyte Percent A 0.2 % (0-0.5); Lymphocytes Absolute Auto 0.86 K/mm3 (0.9-3.2); Lymphocytes Percent Auto 13.1 % (18.3-44.2); Mean Corpuscular HGB Conc 34.9 g/dl (32-36); Mean Corpuscular Hemoglobin 31.9 pg (26-34); Mean Corpuscular Volume 91.6 fl (80-100); Mean Platelet Volume 9.2 fl (7.4-10.4); Monocytes Absolute Auto 0.6 K/mm3 (0.1-0.6); Monocytes Percent Auto 9.5 % (2.6-8.5); Neutrophils Percent Auto 76.1 % (45.5-73.1); Platelet Count Result 189 k/mm3 (150-375); Red Blood Count 4.07 M/mm3 (4.6-6.20); Red Cell Distribution Width 12.9 % (11.5-14.5); White Blood Count 6.6 K/mm3 (4.5-10.0)
[2024-08-27 18:41] LABS: Alanine Aminotransferase 17 U/L (6-50); Albumin Level 3.8 g/dL (3.5-5.1); Alkaline Phosphatase 62 U/L (38-126); Anion Gap 10 mmol/L (4-12); Aspartate Amino Transferase 25 U/L (17-59); Bilirubin,Total 1.2 mg/dL (0.2-1.3); Blood Urea Nitrogen 20 mg/dL (9-20); Calcium 8.8 mg/dL (8.4-10.2); Carbon Dioxide 24 mmol/L (22-30); Chloride 104 mmol/L (98-107); Estimated CRCL calculation 39 ml/min; Estimated Glomerular Filt Rate 51; Glucose 144 mg/dL (65-110); INR 1.1; Potassium 3.3 mmol/L (3.4-5.0); Prothrombin Time 14.1 Seconds (11.1-14.7); Sodium 138 mmol/L (137-145)
--- NOTE | 2024-08-27 18:41 | ED.GENADULT ---
HPI - General Adult General Chief complaint: Unspecified Stated complaint: MULTIPLE C/O Time Seen by Provider: 08/27/24 17:43 History of Present Illness HPI narrative: Patient is an 79-year-old male who presents ER with pain to his chest and back. It occurred while lifting his 's the the scooter. No exertional chest discomfort. Pain is worse with physical movements. No heart disease. No fevers or chills or sweats. Cannot identify alleviating factors. First began 3 days ago but worsened again today while caring her scooter up the stairs. Related Data Home Medications Medication Instructions Recorded Confirmed solifenacin 10 mg tablet 10 mg PO DAILY 07/06/24 08/24/24 Allergies Allergy/AdvReac Type Severity Reaction Status Date / Time Sulfa (Sulfonamide Allergy Intermediate Rash Verified 08/27/24 17:11 Antibiotics) sulfanilamide Allergy Unknown Rash Verified 08/27/24 17:11 atorvastatin AdvReac Mild Cramping Verified 08/27/24 17:11 of the Muscles Review of Systems Review of Systems: All systems reviewed & are unremarkable except as noted in HPI and below Constitutional: Constitutional: Reports no additional constitutional complaints ENT: Reports system reviewed and no additional complaints, except as documented Cardiovascular: Cardiovascular: Reports no additional cardiovascular complaints Respiratory: Respiratory: Reports no additional respiratory complaints Gastrointestinal: Gastrointestinal: Reports no additional gastrointestinal complaints [facility] Past Medical History Medical History Chronic renal failure, stage 3 (moderate) History of prostate cancer Hyperlipidemia Hypertension PAD (peripheral artery disease) Prostate cancer Surgical History Surgical History H/O radical prostatectomy Family History Family History Father Hypertension Family history of diabetes mellitus in first degree relative Sibling Patient's sister is in good health Social History Social History 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 Smoking packs per day: 3 Smoking cigarettes per day: 60.0 Years smoked: 25 Smoking pack-years: 75.00 Smoking status: Former smoker Tobacco type: cigarettes Second hand tobacco smoke exposure: No Smoking end date: 11/14/84 Alcohol intake: former Substance use: former Substance use type: does not use Lack of Transportation: No Lack of Food: Never True Current Housing: I Have Housing Concerned About Future Housing: No Difficulty Paying Gas/Electric Bills: No Difficulty Paying for Meds: No Currently Unemployed: YES Education: Decline to Answer Difficulty w/ Childcare or Family Care: No Living arrangements: with family Occupation/Education: retired Gender identity (if verbalized by the patient): Male Sexual Orientation (if Verbalized by the Patient): Straight or Heterosexual Exam Narrative: GENERAL: Well-appearing, well-nourished, and in no acute distress. HEAD: Normocephalic, atraumatic. ENT: Mucous membranes moist. NECK: Supple. CHEST: Clear to auscultation. No respiratory distress. Mild tenderness right chest wall. HEART: Regular rate and rhythm. Normal peripheral pulses. ABDOMEN: Soft, nontender, nondistended. EXTREMITIES: Normal range of motion. No edema. SKIN: Warm, dry, no rash. NEURO: Alert and oriented x3. PSYCH: Normal mood and affect. Course Course Emergency Course: troponin negative. Pain felt to be musculoskeletal. Recommend Tylenol muscle relaxers. Discharged home. Vital Signs Vital signs: Vital Signs Temperature 97.9 F 08/27/24 17:08 Pulse Rate 84 08/27/24 17:08 Respiratory Rate 18 08/27/24 17:08 Blood Pressure 152/65 H
[2024-08-27 18:42] LABS: Partial Thromboplastin Time 31.2 Seconds (22.3-36.8)
--- NOTE | 2024-08-27 18:42 | ECG_ITS ---
Test Date: 2024-08-27 18:50:23 Measurements Intervals [place] Rate: 64 P: 1 ME: 296 QRS: 0 QRSD: 94 T: 43 QT: 401 QTc: 415 Interpretive Statements SINUS RHYTHM WITH FIRST DEGREE AV BLOCK No previous ECG available for comparison Electronically Signed On 08-28-2024 11:59:52 CDT by Taj Herzog M.D.
[2024-08-27 18:53] LABS: Troponin I < 0.012 ng/mL (0.000-0.034)
== END 2024-08-27 19:25 | disposition home or self-care (01) ==
PROVIDERS: Emergency Provider Emergency Medicine; PCP Family Medicine
DX: R07.89 Other chest pain (principal); I12.9 Hypertensive chronic kidney disease with stage 1 through stage 4 chronic kidney disease, or unspecified chronic kidney disease; N18.30 Chronic kidney disease, stage 3 unspecified; I73.9 Peripheral vascular disease, unspecified; E78.5 Hyperlipidemia, unspecified; Z85.46 Personal history of malignant neoplasm of prostate; Z87.891 Personal history of nicotine dependence; Z90.79 Acquired absence of other genital organ(s); Z79.899 Other long term (current) drug therapy; I44.0 Atrioventricular block, first degree
CPT/HCPCS: 36415; 71046; 80053; 84484; 85025; 85610; 85730; 93005; 96374; 99284; J2270

== ENCOUNTER 2024-09-06 12:20 | Outpatient (CLI) | payer MEDICARE, SELFPAY ==
[2024-09-06 12:37] LABS: Hematocrit 39.7 % (42.0-52.0); Hemoglobin 13.7 g/dL (14.0-18.0); Mean Corpuscular HGB Conc 34.5 g/dl (32-36); Mean Corpuscular Hemoglobin 31.6 pg (26-34); Mean Corpuscular Volume 91.5 fl (80-100); Mean Platelet Volume 8.5 fl (7.4-10.4); Platelet Count Result 320 k/mm3 (150-375); Red Blood Count 4.34 M/mm3 (4.6-6.20); Red Cell Distribution Width 12.5 % (11.5-14.5); White Blood Count 5.9 K/mm3 (4.5-10.0)
[2024-09-06 12:47] LABS: Alanine Aminotransferase 23 U/L (6-50); Albumin Level 4.3 g/dL (3.5-5.1); Alkaline Phosphatase 65 U/L (38-126); Anion Gap 7 mmol/L (4-12); Aspartate Amino Transferase 26 U/L (17-59); Bilirubin,Total 0.5 mg/dL (0.2-1.3); Blood Urea Nitrogen 17 mg/dL (9-20); Calcium 9.8 mg/dL (8.4-10.2); Carbon Dioxide 29 mmol/L (22-30); Chloride 103 mmol/L (98-107); Estimated Glomerular Filt Rate 51; Glucose 97 mg/dL (65-110); Potassium 4.1 mmol/L (3.4-5.0); Sodium 139 mmol/L (137-145); Uric Acid 7.9 mg/dL (3.5-8.5)
== END 2024-09-06 12:21 | disposition home or self-care (01) ==
PROVIDERS: PCP Family Medicine; Visit Provider Physician Assistant
DX: E78.00 Pure hypercholesterolemia, unspecified (principal); M79.674 Pain in right toe(s); N18.30 Chronic kidney disease, stage 3 unspecified
CPT/HCPCS: 36415; 80053; 84550; 85027

== ENCOUNTER 2024-10-23 08:50 | Outpatient (CLI) | payer MEDICARE, SELFPAY ==
[2024-10-23 10:28] LABS: Prothrombin Time 13.5 Seconds (11.1-14.7)
[2024-10-23 10:29] LABS: Partial Thromboplastin Time 26.7 Seconds (22.3-36.8)
[2024-10-23 12:31] LABS: Hemoglobin A1C 5.8 % (<5.7)
== END 2024-10-23 08:51 | disposition home or self-care (01) ==
LOC: ANHSURGERY 08:54
PROVIDERS: Anesthesiology; PCP Family Medicine; Visit Provider Urology
DX: N39.3 Stress incontinence (female) (male) (principal); N18.30 Chronic kidney disease, stage 3 unspecified
CPT/HCPCS: 36415; 83036; 85610; 85730; 87077; 87086; 87186

== ENCOUNTER 2024-10-31 00:56 | Day surgery (SDC) | payer MEDICARE, SELFPAY ==
--- NOTE | 2024-10-22 15:29 | PC.NURSE ---
Report to the Outpatient Waiting Room, entrance under the green pavilion located off [facility], at time 9:30 AM on date __10/31/24 . Planned Procedure Time: 11:30 AM .? Time changes happen often and if your time is changed the preop area will call you the afternoon before. - You and your visitor will be asked to self-screen and do not enter if you have any COVID symptoms. Please call surgeon if you need to reschedule. - A mask is optional within the hospital at this time. Patients may have clear liquids (water, carbonated beverages, clear teas, apple juice) until 3 hours prior to surgery( 8:30 AM) with a maximum of 20 ounces. - No food from midnight until time of surgery and no smoking. This includes no chewing gum, candy or mints. - Infants may have breast milk until 4 hours before surgery, infant formula 6 hours prior to surgery. - Children will be allowed to drink immediately following surgery.? If applicable, please bring a bottle or sippy cup to assist with drinking. Juice, water, soda, and popsicles are readily available.? For infants on formula, please bring formula the day of surgery.? Pacifiers are allowed. Take only the following medications with a SIP of water on the morning of surgery: __NONE DO NOT STOP ANY OF YOUR OTHER PRESCRIPTION MEDICATIONS PRIOR TO SURGERY EXCEPT THE FOLLOWING Medications to discontinue per physician ___HOLD ALL VITAMINS AND SUPPLEMENTS 3 DAYS PRE OP Date to take last dose__10/27/24 Please no make-up, nail togolese, hairspray, perfume, deodorant, or body powder the day of surgery.? No jewelry (including any body piercings) or valuables the day of surgery, leave them at home.? Please take a shower or bath the night before, or the morning of, surgery with an antibacterial soap.? Wear comfortable, loose fitting clothing.? Children are encouraged to wear pajamas. - Jewelry must be removed prior to entering the operating room.? Rings and piercings that are not removed may be cut off. - The hospital will not accept responsibility for valuables.? - Please leave all valuables, including medications, at home the day of surgery. If you are going home after surgery, a licensed hazmat tanker driver must drive you home.? - NO public transportation without another adult if you receive anesthesia. - We recommend that an adult stay with you for 24 hours following discharge. - We also recommend that you do not drive, make important decision, drink alcoholic beverages, or take any drugs that were not prescribed by your health care provider for at least 24 hours after your discharge time. For Pediatric surgeries, we recommend two adults accompany the child home. Follow any additional instructions given to you from your surgeon. Telephone instructions given to PATIENT and asked if any additional questions and then verbalized understanding. Patient advised to call surgeon office or pre surgery nurse liaison [phone] if any additional questions.
[2024-10-22 15:37] VITALS: BMI 25.6
[2024-10-31] VITALS (20 sets, daily range): BP systolic 112–183; BP diastolic 60–91; PULSE 51–74; RESP 12–20; TEMP 35.9–36.9; O2SAT 95–100
[2024-10-31] MEDS: VANCOMYCIN 1,500 MG/NS 500 ML 1,500 MG/500 ML BAG 250 MG IVPB (09:58)
[2024-10-31] MEDS: GENTAMICIN SULFATE IVPB (09:59)
[2024-10-31] MEDS: DEXTROSE 5% IVPB (09:59)
--- NOTE | 2024-10-31 10:38 | P.PNAN_ITS ---
Anes - Initial Pre Proc Eval Procedure: Operation Date: 10/31/24 11:30 Proposed Procedures p Flexible Cystoscopy - Mark Farmer MD s Male Sling - Mark Farmer MD Date/Time: 10/31/24 10:38 Surgeon: Mark Farmer MD Pre Op Diagnosis: Male Stress Incontinence Patient Data Age: 79 Gender: M Height: 1.91 m Weight: 92 kg Last Vital Signs Temp 98.2 F 10/31/24 09:32 Pulse 67 10/31/24 09:32 Resp 16 10/31/24 09:32 BP 136/73 10/31/24 09:32 Pulse Ox 100 10/31/24 09:32 Allergies Allergy/AdvReac Type Severity Reaction Status Date / Time Sulfa (Sulfonamide Allergy Intermediate Rash Verified 10/26/24 15:38 Antibiotics) sulfanilamide Allergy Unknown Rash Verified 10/26/24 15:38 Home Medications ?Medication ?Instructions ?Recorded ?Confirmed ?Type solifenacin 10 mg tablet 10 mg PO DAILY 07/06/24 10/31/24 History lisinopril 20 mg tablet 20 mg PO DAILY #90 tabs 08/24/24 10/31/24 Rx simvastatin 20 mg tablet 20 mg PO DAILY #90 tabs 08/24/24 10/31/24 Rx cholecalciferol (vitamin D3) 125 125 mcg PO DAILY #30 caps 09/06/24 10/29/24 Rx mcg (5,000 unit) capsule omeprazole 20 mg capsule,delayed 20 mg PO DAILY 10/29/24 10/31/24 History release levofloxacin 500 mg tablet 500 mg PO Q24H 10/31/24 10/31/24 History Patient hx anesthesia problems: none (sometimes wakes up combative) Family hx anesthesia problems: none Results Review: All pre-operative results and documents have been reviewed as part of the pre- operative evaluation. 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 Smoking packs per day: 3 Smoking cigarettes per day: 60.0 Years smoked: 25 Smoking pack-years: 75.00 Smoking status: Former smoker Tobacco type: cigarettes Second hand tobacco smoke exposure: No Smoking end date: 11/14/84 Alcohol intake: former Substance use: former Substance use type: does not use Lack of Transportation: No Lack of Food: Never True Current Housing: I Have Housing Concerned About Future Housing: No Difficulty Paying Gas/Electric Bills: No Difficulty Paying for Meds: No Currently Unemployed: YES Education: Decline to Answer Difficulty w/ Childcare or Family Care: No Living arrangements: with family Occupation/Education: retired Gender identity (if verbalized by the patient): Male Sexual Orientation (if Verbalized by the Patient): Straight or Heterosexual Anes - Eval Final PreProcedure Day of Procedure 10/31/24 10:38 Patient weight: normal Heart: regular rate and rhythm Lungs: clear to auscultation Airway: Mallampati scale class II Neurological: alert and oriented Last oral intake: >/= 8 hours ASA classification: III Emergent: no Anesthetic plan: proceed Anesthesia type and monitoring: general LMA and standard monitoring Results Review: All pre-operative results and documents have been reviewed as part of the pre- operative evaluation. Informed Consent: The patient's anesthetic plan and its attendant risks and benefits were discussed with the patient/family/POA. Questions were solicited and answers provided to the satisfaction of the patient/family/POA.
--- NOTE | 2024-10-31 12:19 | WPDHPUPDATE1 ---
History and Physical Update Update Date/Time: 10/31/24 12:19 History and Physical has been reviewed, including an updated exam of the patient. There are NO changes in the patient's condition. Risks, benefits, and alternatives have been discussed and questions answered. Patient agrees to proceed with procedure.
[2024-10-31] MEDS: LIDOCAINE 2% GEL UROJET 10 ML PKG MUCOUS MEM (13:08)
[2024-10-31] MEDS: CELLULOSE OXIDIZED 4 x 8 INCH 1 PKT XX (13:53)
[2024-10-31] MEDS: ceFAZolin SODIUM 1 GM VIAL (13:53)
--- NOTE | 2024-10-31 14:17 | W.PM.PROC2 ---
Procedure Note - Detailed Date of Procedure 10/31/24 Pre-op Diagnosis Male Stress Incontinence Post-op Diagnosis Same Procedure Performed 1. Placement of AMS Advance male sling. 2. Cystoscopy. Surgeon Mark Farmer MD Anesthesia General Description of Procedure Informed consent was obtained. The patient was taken to the operating room and given preoperative IV antibiotics with vancomycin and gentamicin, the patient has received oral Levaquin for the past for the past week hours at home due to culture appropriate for his preoperative positive urine culture. Additionally he has done a has done a 3-day Hibiclens wash. The patient was induced with general anesthesia. We then shaved, and the patient received a Betadine scrub followed by ChloraPrep. The patient was in the dorsal lithotomy position. Drapes were placed and then again prepped with Chloraprep. A 16-Kyrgyz Mahajan catheter was inserted. We made a 3 cm incision in the perineum. We then dissected down and identified the bulbar spongiosis muscle. The muscle layer was opened. We identified the urethra and it was mobilized laterally as well as proximally. We did take down the central tendon for approximately 2 cm. This allowed mobilization of the urethra. We then irrigated copiously. We secured the mesh to the spongiosum with 3-0 Vicryl suture with the proximal end at point of dissection of central tendon. Cystoscopy was performed to ensure appropriate positioning of sutures and no urethral injury. We used the Advance trocar passers to place the sling through the obturator foramen. There was good positioning noted.The catheter was removed. We then performed flexible cystoscopy. We inspected the urethra in the bladder. There was no injury from sling placement. We then tightened the sling. We did note that the sling did compress nicely. A 12-F Mahajan catheter was inserted. We then irrigated copiously. We then closed bulbar spongiosis with a 2-0 Vicryl suture. We then tunneled the arms of the sling into the perineal incision. We performed multiple layers of closure with 3-0 Vicryl suture and the skin was closed with a 3-0 Vicryl horizontal mattress. We reapproximated the skin at the stab incisions for placement of the trocars with 4-0 Monocryl. Surgical glue was applied to all incisions.We placed a scrotal supporter. The catheter was left to gravity. The patient was then awakened and taken to the recovery room in stable condition. Estimated Blood Loss 100 Pathology None sent Complications No immediate complications Condition Stable
[2024-10-31] MEDS: LACTATED RINGERS 1,000 ML 30 ML IV CONT ×2 (14:21)
[2024-10-31] MEDS: fentaNYL CITRATE INJ (*CRX) 100 MCG/2 ML VIAL 25 MCG IV PUSH ×7 (14:52→16:19)
--- NOTE | 2024-10-31 15:35 | SUR.PHASEI ---
Patient meets PACU discharge criteria, unit bed unavailable at this time. Patient placed in extended recovery status.
[2024-10-31] MEDS: hydrALAZINE HCL 20 MG/ML VIAL 10 MG IV PUSH (16:38)
--- NOTE | 2024-10-31 16:54 | SUR.PHASEI ---
Floor RN unable to take report at this time.
--- NOTE | 2024-10-31 17:32 | ADMGEN ---
This patient, Sudarshan Rice, was admitted to Medical Room 252-01. Patient/family oriented to hospital policies and general routines including ID bracelet, bed and alarms, visiting hours, pain management, procedures, bathroom and other care routines, personal items, smoking policy, room service/diet, and visiting hours. Information on how to activate the Rapid Response Team has been discussed. Patient/Family are encouraged to report perceived risks to care and to ask questions if they do not understand what they are told or what they should do.
[2024-10-31] MEDS: DOCUSATE SODIUM 100 MG CAPSULE PO (17:59)
[2024-10-31] MEDS: DEXTROSE 5%/0.45% SOD CHL 1,000 ML 125 ML IV CONT (17:59)
[2024-10-31 18:11] LABS: Hematocrit 42.1 % (42.0-52.0); Hemoglobin 14.4 g/dL (14.0-18.0); Mean Corpuscular HGB Conc 34.2 g/dl (32-36); Mean Corpuscular Hemoglobin 31.5 pg (26-34); Mean Corpuscular Volume 92.1 fl (80-100); Platelet Count Result 191 k/mm3 (150-375); Red Blood Count 4.57 M/mm3 (4.6-6.20); Red Cell Distribution Width 14.2 % (11.5-14.5); White Blood Count 6.3 K/mm3 (4.5-10.0)
[2024-10-31] MEDS: HYDROcodone/acetaminophen (*CRX) 5-325 MG TABLET 1 TAB PO ×2 (18:27→23:07)
[2024-10-31] MEDS: VANCOMYCIN 1,000 MG/NS 250 ML 1,000 MG/250 ML BAG 250 MG IVPB (21:10)
[2024-11-01 02:02] VITALS: BP 117/63; PULSE 73; RESP 16; TEMP 36.7; O2SAT 100
[2024-11-01 02:57] VITALS: BP 121/66; PULSE 60; RESP 18; TEMP 36.6; O2SAT 100
[2024-11-01] MEDS: DEXTROSE 5%/0.45% SOD CHL 1,000 ML 125 ML IV CONT (04:29)
[2024-11-01] MEDS: HYDROcodone/acetaminophen (*CRX) 5-325 MG TABLET 1 TAB PO (04:31)
[2024-11-01 05:40] VITALS: BP 123/65; PULSE 68; RESP 18; TEMP 36.9; O2SAT 100
[2024-11-01 06:19] LABS: Anion Gap 3 mmol/L (4-12); Blood Urea Nitrogen 15 mg/dL (9-20); Calcium 8.4 mg/dL (8.4-10.2); Carbon Dioxide 25 mmol/L (22-30); Chloride 110 mmol/L (98-107); Estimated CRCL calculation 42 ml/min; Estimated Glomerular Filt Rate 55; Glucose 105 mg/dL (65-110); Potassium 3.5 mmol/L (3.4-5.0); Sodium 138 mmol/L (137-145)
--- NOTE | 2024-11-01 08:13 | WPDUROPN2 ---
Progress Note: A&P Assessment and Plan (1) History of prostate cancer: Code(s): Z85.46 - Personal history of malignant neoplasm of prostate Status: Acute Assessment and Plan: 01/11/19: RALP/bilat. PLND -> T3b, N0 (extracapsular extension, positive margins, seminal vesicle involvement). IMRT 08/2019. PSA 01/2024 < 0.04. (2) Male urinary stress incontinence: Code(s): N39.3 - Stress incontinence (female) (male) Status: Acute Assessment and Plan: Chronic [id number], worsening. Formal diagnosis with Urodynamics earlier this year. (3) H/O radical prostatectomy: Code(s): Z90.79 - Acquired absence of other genital organ(s) Status: Acute Assessment and Plan: RALP 2018 Plan - Doing well post-op day 1 placement of AMS Advance male sling. - Void trial this morning. PVR bladder scan to ensure he's emptying appropriately. - Plan for discharge home this afternoon - Patient has outpatient follow-up with Dr. Farmer 11/16/2024 @10:15am Subjective Subjective Date/Time Seen: 11/01/24 1015 Interval history: NAEO; POD1 uncomplicated placement of AMS Advance male sling and cystoscopy with Dr. Farmer. Patient reports some perineum tenderness when OOB to chair, otherwise denies complaints. No N/V No active bleeding. Mahajan removed this morning for void trial. Review of Systems Constitutional: Constitutional: Reports no additional constitutional complaints Gastrointestinal: Gastrointestinal: Denies nausea and Denies vomiting Genitourinary: Genitourinary: Reports as per HPI Exam Const: General: comfortable and no acute distress Resp: Effort & Inspection: normal respiratory effort Neuro: Speech: normal speech Psych: Mental Status: mental status grossly normal Objective Data Vital Signs Vital Signs: Vital Signs - 24 hr 10/31/24 09:32 10/31/24 14:21 10/31/24 14:35 Temperature 98.2 F 97.9 F Pulse Rate 67 67 60 Respiratory Rate 16 19 12 Blood Pressure 136/73 145/91 H 144/75 H Pulse Oximetry 100 97 98 Oxygen Delivery Room Air Simple Face Mask Oxygen Flow Rate 8 10/31/24 14:50 10/31/24 15:05 10/31/24 15:20 Temperature Pulse Rate 59 L 55 L 57 L Respiratory Rate 16 12 20 Blood Pressure 145/76 H 138/85 145/85 H Pulse Oximetry 100 95 99 Oxygen Delivery Simple Face Mask Nasal Cannula Nasal Cannula Oxygen Flow Rate 8 2 2 10/31/24 15:35 10/31/24 16:05 10/31/24 16:35 Temperature Pulse Rate 52 L 51 L 52 L Respiratory Rate 17 14 12 Blood Pressure 150/84 H 159/90 H 183/82 H Pulse Oximetry 100 100 100 Oxygen Delivery Nasal Cannula Nasal Cannula Nasal Cannula Oxygen Flow Rate 2 2 2 10/31/24 16:50 10/31/24 17:06 10/31/24 17:30 Temperature 97.5 F L 96.7 F L Pulse Rate 55 L 62 60 Respiratory Rate 18 20 18 Blood Pressure 161/81 H 157/84 H 160/69 H Pulse Oximetry 100 100 100 Oxygen Delivery Nasal Cannula Nasal Cannula Oxygen Flow Rate 2 2 10/31/24 17:45 10/31/24 18:12 10/31/24 18:15 Temperature 96.6 F L 96.7 F L Pulse Rate 66 70 Respiratory Rate 18 18 Blood Pressure 153/82 H 155/69 H Pulse Oximetry 98 97 99 Oxygen Delivery Nasal Cannula Oxygen Flow Rate 2 10/31/24 19:15 10/31/24 20:00 10/31/24 20:13 Temperature 97.1 F L 98.0 F Pulse Rate 72 67 Respiratory Rate 18 18 Blood Pressure 139/61 132/66 Pulse Oximetry 100 99 99 Oxygen Delivery Nasal Cannula Oxygen Flow Rate 2 10/31/24 22:57 10/31/24 23:30 11/01/24 02:02 Temperature 98.4 F 98.3 F 98.0 F Pulse Rate 64 74 73 Respiratory Rate 16 18 16 Blood Pressure 115/60 112/63 117/63 Pulse Oximetry 100 100 100 Oxygen Delivery Oxygen Flow Rate 11/01/24 02:57 11/01/24 05:40 Temperature 97.8 F 98.5 F Pulse Rate 60 68 Respiratory Rate 18 18 Blood Pressure 121/66 123/65 Pulse Oximetry 100 100 Oxygen Delivery Oxygen Flow Rate Intake/Output Intake/Output: Intake & Output 10/29/24 10/30/24 10/31/24 11/01/24 23:59 23:59 23:59 23:59 Intake Total 200 1500 Output Total 1000 1000 Balance -800 500 Meds/Results Medications: Active Medications Generic Name Dose Route Start Last Admin Trade Name Freq PRN Reason Stop Dose Admin Hydrocodone Bitart/Acetaminophen 1 tab 10/31/24 17:12 11/01/24 04:31 Hydrocodone/Acetaminophen (*Crx) 5-325 Mg Tablet PO 1 tab Q4H PRN Administration Pain Rated 1-6 Docusate Sodium 100 mg 10/31/24 17:12 10/31/24 17:59 Docusate Sodium 100 Mg Capsule PO 100 mg BID JOHNATHAN Administration Enoxaparin Sodium 30 mg 11/01/24 09:00 Enoxaparin 30 Mg/0.3 Ml Syringe SUB-Q DAILY JOHNATHAN Dextrose/Sodium Chloride 1,000 mls @ 125 mls/hr 10/31/24 17:12 11/01/24 04:29 Dextrose 5% Sodium Chloride 0.45% IV CONT 125 mls/hr .Q8H JOHNATHAN Administration Gentamicin Sulfate/Sodium Chloride 80 mg in 50 mls @ 100 mls/hr 11/01/24 14:22 Gentamicin 80mg/Sod Chl 50 Ml IVPB 11/01/24 14:51 ONCE ONE Vancomycin HCl 1,000 mg in 250 mls @ 250 mls/hr 10/31/24 22:00 10/31/24 21:10 Vancomycin 1,000 Mg/Ns 250 Ml IVPB 11/01/24 10:59 250 mls/hr Q12H JOHNATHAN Administration Levofloxacin 500 mg 11/01/24 09:00 Levofloxacin 500 Mg Tablet PO Q24H [facility] Lisinopril 20 mg 11/01/24 09:00 Lisinopril 20 Mg Tablet PO DAILY [facility] Morphine Sulfate 2 mg 10/31/24 17:12 Morphine Sulfate (*Crx) 2 Mg/Ml Inj IV PUSH Q2H PRN Pain Rated 7-10 Naloxone HCl 0.1 mg 10/31/24 17:12 Naloxone Hcl 0.4 Mg/Ml Vial IV PUSH Q2M PRN Opiate Reversal Pantoprazole Sodium 40 mg 11/01/24 09:00 Pantoprazole 40 Mg Tablet PO QAM [facility] Simvastatin 20 mg 11/01/24 09:00 Simvastatin 20 Mg Tablet PO DAILY [facility] Labs Labs: Laboratory Results - last 24 hr 10/31/24 11/01/24 18:00 05:50 WBC 6.3 RBC 4.57 L Hgb 14.4 Hct 42.1 MCV 92.1 MCH 31.5 MCHC 34.2 RDW 14.2 Plt Count 191 MPV 9.0 Sodium 138 Potassium 3.5 Chloride 110 H Carbon Dioxide 25 Anion Gap 3 L BUN 15 Creatinine 1.50 H Estim Creat Clear Calc 42 Estimated GFR 55 L Glucose 105 Calcium 8.4
[2024-11-01] MEDS: levoFLOXacin 500 MG TABLET PO (08:43)
[2024-11-01] MEDS: PANTOPRAZOLE 40 MG TABLET PO (08:43)
[2024-11-01] MEDS: SIMVASTATIN 20 MG TABLET PO (08:43)
[2024-11-01 08:44] VITALS: RESP 18; O2SAT 100
[2024-11-01] MEDS: lisinopriL 20 MG TABLET PO (08:44)
[2024-11-01] MEDS: ENOXAPARIN 30 MG/0.3 ML SYRINGE SUB-Q (08:44)
[2024-11-01] MEDS: DOCUSATE SODIUM 100 MG CAPSULE PO ×2 (08:44→16:34)
[2024-11-01] MEDS: VANCOMYCIN 1,000 MG/NS 250 ML 1,000 MG/250 ML BAG 250 MG IVPB (09:22)
[2024-11-01 10:48] VITALS: BP 132/59; PULSE 59; RESP 18; TEMP 36.2; O2SAT 97
[2024-11-01] MEDS: GENTAMICIN 80MG/SOD CHL 50 ML 80 MG/50 ML BAG 100 MG IVPB (13:22)
[2024-11-01 14:57] VITALS: BP 149/65; PULSE 84; RESP 18; TEMP 36.8; O2SAT 97
== END 2024-11-01 18:20 | disposition home or self-care (01) ==
LOC: ANHSURGERY 08:55 → ANH2MED 17:29
PROVIDERS: PCP Family Medicine; Visit Provider Urology
PROC: 0TJB8ZZ Inspection of Bladder, Via Natural or Artificial Opening Endoscopic (ICD-10-PCS; CPT 52000; principal; 2024-10-31 11:30)
PROC: (CPT 53440; 2024-10-31 11:30)
DX: N39.3 Stress incontinence (female) (male) (principal); Z90.79 Acquired absence of other genital organ(s); Z85.46 Personal history of malignant neoplasm of prostate; I12.9 Hypertensive chronic kidney disease with stage 1 through stage 4 chronic kidney disease, or unspecified chronic kidney disease; N18.30 Chronic kidney disease, stage 3 unspecified; Z87.891 Personal history of nicotine dependence
CPT/HCPCS: 53440; 36415; 80048; 85027; A9270; C1771; J0360; J0690; J1580; J1650; J2405; J2704; J3010; J3370; J7120

== ENCOUNTER 2025-04-17 12:04 | Outpatient (CLI) | payer MEDICARE, SELFPAY ==
--- NOTE | ~2025-04-17 | XR_ITS ---
Right ankle Technique: AP and lateral views were obtained. Clinical History: Pain Findings: No acute fracture or dislocation is seen. Large area of lucency at the medial corner of the talar dome is compatible with developing osteochondral lesion. Joint spaces are intact otherwise. So ft tissues are otherwise unremarkable. Impression: Osteochondral lesion of the medial corner of the talar dome. Reviewed, dictated and finalized at location M. Impression: Osteochondral lesion of the medial corner of the talar dome.
--- OUTSIDE RECORDS SUMMARY | 2025-04-17 12:07 | XMS_ITS | Continuity of Care Document ---
Author Organization [facility] Address [address] [place] [address] Phone Care Team Providers Care Founder And Chief Executive Officer Name Role Phone Sebastián Smith DDS Unavailable Unavailable Procedures Procedure Date Periapical first film Limit oral eval problem focused 011 Extraction erupted tooth or exposed root Advance Directives Directive Yes / No Effective Date File Name No Information Encounters Encounter Description Practice Location Reason(s) For Visit Diagnoses Date Provider Providers Copied on Encounter [employer] [employer] [facility] , [address], [place], [place], [id number], tel:[phone] [facility] Luis Lowery. [address], [place], [place], [address], [place]. tel:[phone] Family History Family Member Type Diagnosis Age At Onset No Information Payers Payer name Insurance type Covered libertarian ID Authoriza tion(s) No Information Social History Type Description Quantity Date Captured Comments Sex Male Smoking Status No Information Chief Complaint And Reason For Visit No Information Reason For Referral Reason For Referral No Information History Of Present Illness Encounter Date Complaint History Of Prese nt Illness No Information Functional Status Date Functional Assessmen t No Information Instructions Date Instruction Additional Infor mation No Information Assessments Type Assessment Date No Information Patient Care Teams Name Effective Dates (start - stop) Status Members No Information
--- OUTSIDE RECORDS SUMMARY | 2025-04-17 12:07 | XMS_ITS | CONTINUITY OF CARE DOCUMENT ---
Author Name ramirezdennis ramirezdennis Address Unknown Organization [facility] Office Address [address] [place] [address] Phone [phone] Care Team Providers Care Employee Relations Advisor Name Role Phone Roldan Mandel MD Unavailable [phone] Roldan Mandel MD Unavailable [phone] PROBLEMS Condition Status Date Provider Notes Cardiovascular screening active Roldan Mandel MD Palpitations active Roldan Mandel MD Shortness of breath active Roldan Mandel MD Sleep apnea active Roldan Mandel MD ENCOUNTERS Date Type Provider Location Encounter Diag nosis - In-person encounter Office Visit [facility] - In-person encounter Office Visit Roldan Mandel MD [facility] Cardiovascular screeningPalpitationsShortness of breathSleep apnea VITAL SIGNS Date Observation Value Provider Body Mass Index (Ratio) 28.02 kg/m2 Roldan Mandel MD blood pressure, diastolic 99 mm[Hg] [facility] kannan Evangelista blood pressure, systolic 164 mm[Hg] Eva Evangelista oxygen saturation, oximetry 96 % Sharla Evangelista respiratory rate E&M 18 /min Sharla rooney pulse rate 74 /min Sharla Evangelista weight E&M 224.2 [lb_av] Sharla Evangelista height E&M 75 [in_i] Sharla Evangelista Body Mass Index (Ratio) 28.00 kg/m2 Roldan Mandel MD blood pressure, diastolic 90 mm[Hg] Sherice [facility] blood pressure, systolic 154 mm[Hg] Rossy [facility] blood pressure, diastolic 90 mm[Hg] Arabella parry [facility] blood pressure, systolic 154 mm[Hg] Rosa jerez [facility] blood pressure, resting Yes Jerardo gibson [facility] oxygen saturation, oximetry 98 % Nayeli [facility] respiratory rate E&M 16 /min Nayeli [facility] pulse rate 68 /min Nayeli [facility] weight E&M 224 [lb_av] Nayeli [facility] height E&M 75 [in_i] Nayeli [facility] ALLERGIES No Known Drug Allergies HISTORY OF MEDICATION USE Medication Status Instructions Dates Provider Indications Com ments simvastatin 20 mg tablet active Nayeli [facility]Mil lisinopril 10 mg tablet active Nayeli [facility] trospium 60 mg capsule,extended release 24hr completed - Nayeli [facility] erythromycin 5 mg/gram (0.5 %) ointment completed - Nayeli [facility] SOCIAL HISTORY Date Observation Value Provider social history reviewed E&M reviewed - no changes required Roldan Mandel MD smoking status Never smoker Sharla Evangelista alcohol use no Roldan Mandel MD smoking status Never smoker Roldan Pantoja social history reviewed E&M reviewed - no changes required Roldan Mandel MD social history E&M S moking History: Cammie summers is a former smoker. 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 advised to start taking a baby aspirin. EKG was unremarkable. Recommend stress test and ECHO. H is updated medication list for this problem includes: Lisinopril 10 Mg Tablet (Lisinopril) Roldan Mandel MD [id number],C, N ot on CPAP. needs to get a sleep study. Roldan Mandel MD [id number],B, Roldan Mandel MD [id number],C,V ron concerning for coronary insufficiency. Recommend ECHO and stress test. H as multiple risk factors with abnormal EKG. P revention / risk reduction of CAD based on AHA/ACC guidelines involving Smoking, Blood Pressure control, Lipid management, Physical activity, Weight management, Diabetes management, use of antiplatelet / anticoagulant agents, Renin Angiotensin-aldosterone system blockers, beta blockers, and compliance with medications discussed with patient. His updated medication list for this problem includes: Lisinopril 10 Mg Tablet (Lisinopril) Roldan Mandel MD [id number],N,not on CPAP. needs to get a sleep study. Roldan Mandel MD [id number],N,o ccasional SOB on exertion. H is updated medication list for this problem includes: Lisinopril 10 Mg Tablet (Lisinopril) Orders: C omplete Echo (CPT-99818) S tress Exercise Cardiolite (CPT-80862) Roldan Mandel MD [id number],N,c /o of heart palpitations when laying down. advised to start taking a baby aspirin. EKG was unremarkable. will get a stress test and an echo. Also a monitor. H is updated medication list for this problem includes: Lisinopril 10 Mg Tablet (Lisinopril) Orders: 9 9204 MOD 45-59 min (CPT-91529) C omplete Echo (CPT-91226) S tress Exercise Cardiolite (CPT-61846) Roldan Mandel MD Cardiology: c /o of heart palpitations when laying down. advised to start taking a baby aspirin. EKG was unremarkable. Recommend stress test and ECHO. H is updated medication list for this problem includes: Lisinopril 10 Mg Tablet (Lisinopril) Rodlan Mandel MD Cardiology: N ot on CPAP. needs to get a sleep study. Roldan Mandel MD Cardiology Roldan Mandel MD Cardiology:Very conc erning for coronary insufficiency. Recommend ECHO and stress test. H as multiple risk factors with abnormal EKG. P revention / risk reduction of CAD based on AHA/ACC guidelines involving Smoking, Blood Pressure control, Lipid management, Physical activity, Weight management, Diabetes management, use of antiplatelet / anticoagulant agents, Renin Angiotensin-aldosterone system blockers, beta blockers, and compliance with medications discussed with patient. His updated medication list for this problem includes: Lisinopril 10 Mg Tablet (Lisinopril) Roldan Mandel MD Cardiology:not on CPAP. needs to get a sleep study. Roldan Mandel MD Cardiology:occasiona l SOB on exertion. H is updated medication list for this problem includes: Lisinopril 10 Mg Tablet (Lisinopril) Orders: C omplete Echo (CPT-62031) S tress Exercise Cardiolite (CPT-85466) Roldan Mandel MD Cardiology:c/o of he art palpitations when laying down. advised to start taking a baby aspirin. EKG was unremarkable. will get a stress test and an echo. Also a monitor. H is updated medication list for this problem includes: Lisinopril 10 Mg Tablet (Lisinopril) Orders: 9 9204 MOD 45-59 min (CPT-21837) C omplete Echo (CPT-84636) S tress Exercise Cardiolite (CPT-46088) Roldan Mandel MD Date Name Monitor - Telemetry (Mobile Cardiac) Stress Exercise Card iolite Complete Echo HISTORY OF PROCEDURES Procedure Date Procedure Name Provider Procedure Notes S tatus EKG Roldan Mandel MD completed
== END 2025-04-17 12:05 | disposition home or self-care (01) ==
PROVIDERS: PCP Family Medicine; Visit Provider Student in an Organized Health Care Education/Training Program
DX: M93.271 Osteochondritis dissecans, right ankle and joints of right foot (principal)
CPT/HCPCS: 73600